=== PATIENT | female | born 1945 | race Hispanic/Latino ===

== ENCOUNTER → 2017-07-19 | Outpatient (CLI) | payer OTHER ==
[~2017-07-19] MED LIST: CEPH500C2 PO; CLON0.1T PO; FOLI1TAB85 PO; GLIP10TA9 PO; INSLAN SQ; LEVO50TA11 PO; METO-409 PO; NIFE60TA12 PO; SIMV10TA6 PO; SITA50TA PO
== END | disposition home or self-care (01) ==
LOC: RAH 09:05
PROVIDERS: ATTEND Family Medicine
DX: D24.1 Benign neoplasm of right breast (principal); Z98.890 Other specified postprocedural states
CPT/HCPCS: 77066

== ENCOUNTER 2018-05-15 08:57 | Inpatient (IN) | payer OTHER ==
[~2018-05-15] VITALS: Ht 157.5 cm; Wt 65.3 kg
[2018-05-15 09:28] LABS: BASOPHILS % (AUTO) 1.1 % (0.0-5.0); EOSINOPHILS % (AUTO) 1.1 % (0.0-8.0); HEMATOCRIT 29.4 % (36-48); LYMPHOCYTES % (AUTO) 26.2 % (21.0-51.0); MEAN CORPUSCULAR HGB CONC 33.1 g/dL (32.0-36.0); MEAN CORPUSCULAR VOLUME 93.8 fL (79-99); MONOCYTES % (AUTO) 8.2 % (3.0-13.0); NEUTROPHILS % (AUTO) 63.4 % (40.0-77.0); NUCLEATED RED BLOOD CELLS 0.2 % (0.0-0.19); PLATELET COUNT (AUTO) 192 K/uL (130-400); RED BLOOD CELL COUNT(AUTO) 3.14 MIL/uL (4.00-5.50); RED CELL DISTRIBUTION WIDTH 13.9 % (11.0-15.5); WHITE BLOOD COUNT (AUTO) 8.2 K/uL (4.8-10.8)
[2018-05-15 09:44] LABS: PARTIAL THROMBOPLASTIN TIME 29.5 SEC (26.3-35.5); PROTHROMBIN TIME 10.5 SEC (9.6-11.6)
[2018-05-15 10:15] LABS: POTASSIUM 8.6 mmol/L (3.5-5.1)
[2018-05-15 10:16] LABS: CREATININE 15.3 mg/dL (0.5-1.5)
[2018-05-15 10:19] LABS: ALBUMIN 3.5 g/dL (3.5-5.0); BILIRUBIN,TOTAL 0.5 mg/dL (0.2-1.0); TOTAL PROTEIN, SERUM 7.8 g/dL (6.0-8.3)
[2018-05-15] MEDS ORDERED: CALCIUM GLUCONATE 1 GM/10 ML VIAL IV ONE (10:20)
[2018-05-15] MEDS ORDERED: SODIUM CHLORIDE 0.9% 50 ML IV ONE (10:22)
[2018-05-15] MEDS ORDERED: DEXTROSE 50%-WATER 50 ML DISP.SYRIN IV ONE (10:31)
[2018-05-15] MEDS ORDERED: INSULIN HUMULIN R 100 UNIT/ML 3ML ONE (10:33)
[2018-05-15] MEDS ORDERED: SODIUM BICARB 50MEQ 50ML VIAL ONE (10:40)
[2018-05-15] MEDS ORDERED: LIDOCAINE HCL 2% 20ML ONE (10:41)
[2018-05-15] MEDS ORDERED: SODIUM POLYSTYRENE SULFONATE 15 GM/60 ML ML ONE (12:03)
[2018-05-15] MEDS ORDERED: SODIUM CHLORIDE 0.9% 1000ML 1,000 ML IV ONE (13:49)
[2018-05-15] MEDS ORDERED: SODIUM CHLORIDE 0.9% 1000ML 1,000 ML IV PRN (14:45)
[2018-05-15] MEDS ORDERED: HEPARIN SODIUM 5000UNIT/ML 1ML VIAL IJ PRN (14:45)
[2018-05-15] MEDS ORDERED: ALBUMIN (HUMAN) 25% 100 ML IV PRN (14:45)
[2018-05-15] MEDS ORDERED: 0.9% SODIUM CHLORIDE 250 ML IV BAG IV PRN (14:45)
[2018-05-15 17:57] LABS: CREATININE 6.2 mg/dL (0.5-1.5)
[2018-05-15 18:02] LABS: ALBUMIN 3.9 g/dL (3.5-5.0); BILIRUBIN,TOTAL 0.7 mg/dL (0.2-1.0)
[2018-05-15 21:05] VITALS: BP 148/65
[2018-05-15] MEDS ORDERED: ONDANSETRON HCL 4 MG/2 ML VIAL IVP PRN (22:00)
[2018-05-15] MEDS ORDERED: ACETAMINOPHEN 325 MG TAB PO PRN (22:00)
[2018-05-16] VITALS (11 sets, daily range): BP systolic 137–175; BP diastolic 58–78
[2018-05-16] MEDS ORDERED: CLONIDINE HCL 0.1 MG TABLET PO PRN (01:00)
[2018-05-16] MEDS ORDERED: CLON0.1T PO (01:13)
[2018-05-16] MEDS ORDERED: SUCR500T PO (01:13)
[2018-05-16] MEDS ORDERED: LEVO100T12 PO (01:13)
[2018-05-16] MEDS ORDERED: NIFE60TA71 PO (01:13)
[2018-05-16] MEDS ORDERED: TYL3 PO (01:13)
[2018-05-16] MEDS ORDERED: SITA25TA5 PO (01:13)
[2018-05-16] MEDS ORDERED: CELE-84 PO (01:13)
[2018-05-16] MEDS ORDERED: FOLI1TAB85 PO (01:13)
[2018-05-16] MEDS ORDERED: GLIP10TA9 PO (01:13)
[2018-05-16] MEDS ORDERED: ACETAMINOPHEN-CODEINE 300/30MG TAB ONE (01:20)
[2018-05-16 05:17] LABS: HEMATOCRIT 29.2 % (36-48); MEAN CORPUSCULAR HEMOGLOBIN 31.5 pg (27.0-33.0); MEAN CORPUSCULAR HGB CONC 33.9 g/dL (32.0-36.0); MEAN CORPUSCULAR VOLUME 92.7 fL (79-99); PLATELET COUNT (AUTO) 200 K/uL (130-400); RED BLOOD CELL COUNT(AUTO) 3.15 MIL/uL (4.00-5.50); RED CELL DISTRIBUTION WIDTH 13.7 % (11.0-15.5); WHITE BLOOD COUNT (AUTO) 6.3 K/uL (4.8-10.8)
[2018-05-16 05:20] LABS: MAGNESIUM 2.1 mg/dL (1.80-2.40); PHOSPHORUS 8.1 mg/dL (2.5-4.9); POTASSIUM 5.1 mmol/L (3.5-5.1)
[2018-05-16 05:22] LABS: CREATININE 9.2 mg/dL (0.5-1.5)
[2018-05-16] MEDS: INSULIN R PO SS1 SQ SCH ×2 (06:29→21:00)
[2018-05-16] MEDS: CELECOXIB 200 MG CAP PO SCH (08:00)
[2018-05-16] MEDS ORDERED: NON-FORMULARY MEDICATION 1 EACH (Vit B Cmplx 3/FA/Vit C/Biotin (Rena-Vite Rx Tablet) 1 EAC PO SCH (09:00)
[2018-05-16] MEDS ORDERED: SITAGLIPTIN PHOSPHATE 25 MG PO SCH (09:00)
[2018-05-16] MEDS ORDERED: SITAGLIPTIN PHOSPHATE 50 MG PO SCH (09:00)
[2018-05-16] MEDS: VITAMIN B COMPLEX 1 CAPSULE PO SCH (09:00)
[2018-05-16] MEDS: ENOXAPARIN SODIUM 30 MG/0.3 ML SQ SCH (09:00)
[2018-05-16] MEDS: VELPHORO PO SCH ×2 (09:00→21:00)
[2018-05-16] MEDS ORDERED: LIDOCAINE HCL 1% MDV 50ML VIAL ONE (15:20)
[2018-05-16] MEDS ORDERED: IODIXANOL 320 MG/ML 100 ML VIAL ONE ×2 (15:20→17:00)
[2018-05-16] MEDS ORDERED: HEPARIN SODIUM 1000UNIT/ML 10ML VIAL ONE (16:07)
[2018-05-16] MEDS ORDERED: HYDRALAZINE HCL 20 MG/ML VIAL ONE (17:34)
[2018-05-16] MEDS ORDERED: ACETAMINOPHEN-CODEINE 300/30MG TAB PO ONE (18:30)
[2018-05-16] MEDS ORDERED: PHARMACY COMMUNICATION MISC SCH (18:45)
[2018-05-16] MEDS ORDERED: MORPHINE SULFATE 2 MG/ML 1ML SYG ONE (20:56)
[2018-05-16] MEDS: INSULIN GLARGINE 100 UNITS/ML 10 ML VIAL SQ SCH (21:00)
[2018-05-16] MEDS ORDERED: MORPHINE SULFATE 2 MG/ML 1ML SYG IV PRN (21:00)
[2018-05-16] MEDS: ACETAMINOPHEN-CODEINE 300/30MG TAB PO SCH (21:00)
[2018-05-16] MEDS ORDERED: ONDANSETRON HCL 4 MG/2 ML VIAL IVP PRN (21:00)
[2018-05-17] VITALS (7 sets, daily range): BP systolic 153–180; BP diastolic 61–92
[2018-05-17] MEDS: CLONIDINE HCL 0.1 MG TABLET PO PRN ×2 (00:54→11:08)
[2018-05-17] MEDS: NIFEDIPINE ER 30 MG TAB PO SCH ×2 (07:30→11:07)
[2018-05-17] MEDS: INSULIN R PO SS1 SQ SCH ×4 (07:30→21:00)
[2018-05-17] MEDS: LEVOTHYROXINE 100 MCG TABLET PO SCH ×2 (07:30→11:13)
[2018-05-17] MEDS: ENOXAPARIN SODIUM 30 MG/0.3 ML SQ SCH (09:00)
[2018-05-17] MEDS: VELPHORO PO SCH ×2 (09:00→21:00)
[2018-05-17] MEDS: CELECOXIB 200 MG CAP PO SCH ×2 (11:07→16:07)
[2018-05-17] MEDS: ACETAMINOPHEN-CODEINE 300/30MG TAB PO SCH ×3 (11:07→21:00)
[2018-05-17] MEDS: PANTOPRAZOLE SODIUM 40 MG TABLET.DR PO SCH ×2 (11:09→16:24)
[2018-05-17] MEDS: VITAMIN B COMPLEX 1 CAPSULE PO SCH ×2 (11:09→16:08)
[2018-05-17] MEDS: SIMVASTATIN 10 MG TABLET PO SCH ×2 (11:11→16:26)
[2018-05-17] MEDS: GLIPIZIDE 5 MG TABLET PO SCH ×2 (11:17→16:23)
[2018-05-18] MEDS: INSULIN GLARGINE 100 UNITS/ML 10 ML VIAL SQ SCH (00:06)
[2018-05-18 03:27] VITALS: BP 147/61
[2018-05-18] MEDS: INSULIN R PO SS1 SQ SCH ×2 (06:05→11:30)
[2018-05-18] MEDS: LEVOTHYROXINE 100 MCG TABLET PO SCH (07:32)
[2018-05-18] MEDS: NIFEDIPINE ER 30 MG TAB PO SCH (07:32)
[2018-05-18] MEDS: VITAMIN B COMPLEX 1 CAPSULE PO SCH (08:17)
[2018-05-18] MEDS: SIMVASTATIN 10 MG TABLET PO SCH (08:17)
[2018-05-18] MEDS: GLIPIZIDE 5 MG TABLET PO SCH (08:17)
[2018-05-18] MEDS: CELECOXIB 200 MG CAP PO SCH (08:17)
[2018-05-18] MEDS: PANTOPRAZOLE SODIUM 40 MG TABLET.DR PO SCH (08:17)
[2018-05-18] MEDS: ACETAMINOPHEN-CODEINE 300/30MG TAB PO SCH (08:19)
[2018-05-18 08:20] VITALS: BP 147/59
[2018-05-18] MEDS: ENOXAPARIN SODIUM 30 MG/0.3 ML SQ SCH (08:20)
[2018-05-18] MEDS: VELPHORO PO SCH (08:23)
[2018-05-18 11:54] VITALS: BP 153/67
== END 2018-05-18 13:37 | disposition home or self-care (01) | DRG 252 ==
LOC: EDH 08:57 → EDHIP 11:00 → 3AH 21:13
PROVIDERS: ADMIT Internal Medicine Critical Care Medicine; ATTEND Internal Medicine Critical Care Medicine
PROC: 5A1D70Z Performance of Urinary Filtration, Intermittent, Less than 6 Hours Per Day (ICD-10-PCS; 2018-05-15)
PROC: 0JH63XZ Insertion of Tunneled Vascular Access Device into Chest Subcutaneous Tissue and Fascia, Percutaneous Approach (ICD-10-PCS; principal; 2018-05-16)
PROC: 02H633Z Insertion of Infusion Device into Right Atrium, Percutaneous Approach (ICD-10-PCS; 2018-05-16)
PROC: 03773ZZ Dilation of Right Brachial Artery, Percutaneous Approach (ICD-10-PCS; 2018-05-16)
PROC: 05773ZZ Dilation of Right Axillary Vein, Percutaneous Approach (ICD-10-PCS; 2018-05-16)
PROC: 027V3ZZ Dilation of Superior Vena Cava, Percutaneous Approach (ICD-10-PCS; 2018-05-16)
PROC: 5A1D70Z Performance of Urinary Filtration, Intermittent, Less than 6 Hours Per Day (ICD-10-PCS; 2018-05-17)
PROC: 05HM33Z Insertion of Infusion Device into Right Internal Jugular Vein, Percutaneous Approach (ICD-10-PCS; 2018-05-17)
DX: T82.510A Breakdown (mechanical) of surgically created arteriovenous fistula, initial encounter (principal); N18.6 End stage renal disease; E87.2 Acidosis; I12.0 Hypertensive chronic kidney disease with stage 5 chronic kidney disease or end stage renal disease; E87.5 Hyperkalemia; E11.22 Type 2 diabetes mellitus with diabetic chronic kidney disease; E66.01 Morbid (severe) obesity due to excess calories; E11.21 Type 2 diabetes mellitus with diabetic nephropathy; E78.5 Hyperlipidemia, unspecified; E87.70 Fluid overload, unspecified; Y83.2 Surgical operation with anastomosis, bypass or graft as the cause of abnormal reaction of the patient, or of later complication, without mention of misadventure at the time of the procedure; Y84.1 Kidney dialysis as the cause of abnormal reaction of the patient, or of later complication, without mention of misadventure at the time of the procedure; M19.90 Unspecified osteoarthritis, unspecified site; Z68.26 Body mass index [BMI] 26.0-26.9, adult; Z99.2 Dependence on renal dialysis; Z79.4 Long term (current) use of insulin; Y92.89 Other specified places as the place of occurrence of the external cause
CPT/HCPCS: 36415; 36556; 36581; 36905; 36907; 71045; 77001; 80048; 80053; 82948; 83735; 84100; 84484; 85025; 85027; 85610; 85730; 90935; 93005; 99291; C1725; C1750; C1752; C1757; C1769; C1893; C1894; J0360; J0610; J1644; J1650; J1815; J2405; J3490; J7030; J7070; Q9967

== ENCOUNTER → 2018-09-19 | Outpatient (CLI) | payer OTHER ==
[~2018-09-19] MED LIST changes: +CELE-84 PO; -CEPH500C2 PO; +LEVO100T12 PO; -LEVO50TA11 PO; -METO-409 PO; -NIFE60TA12 PO; +NIFE60TA71 PO; +SITA25TA5 PO; +SUCR500T PO; +TYL3 PO
== END | disposition home or self-care (01) ==
LOC: SHCH 15:53
PROVIDERS: ATTEND Internal Medicine Cardiovascular Disease
DX: I08.0 Rheumatic disorders of both mitral and aortic valves (principal); E78.5 Hyperlipidemia, unspecified
CPT/HCPCS: 93306

== ENCOUNTER → 2018-09-26 | Outpatient (CLI) | payer OTHER ==
[~2018-09-26] VITALS: Ht 157.5 cm; Wt 68.0 kg
[~2018-09-26] MED LIST changes: +REGADENOSON 0.4 MG/5 ML PF SYG IVP SCH
== END | disposition home or self-care (01) ==
LOC: SHCH 08:22
PROVIDERS: ATTEND Internal Medicine Cardiovascular Disease
DX: Z01.818 Encounter for other preprocedural examination (principal); R01.1 Cardiac murmur, unspecified; E78.5 Hyperlipidemia, unspecified
CPT/HCPCS: 78452; 93017; 96374; A9500 ×2; J2785

== ENCOUNTER → 2019-11-25 | Outpatient (CLI) | payer OTHER ==
[~2019-11-25] MED LIST changes: +CALC667C10 PO; +CLON-353 PO; +CLON0.1T2 PO; +HYDR-4153 PO; +HYDR25 PO; +LEVO112T7 PO; +LEVO500T2 PO; +METO50 PO; +NIFE-39 PO; -NIFE60TA71 PO; +PANT40TA54 PO; -REGADENOSON 0.4 MG/5 ML PF SYG IVP SCH; -SIMV10TA6 PO; +SIMV10TA97 PO
== END | disposition home or self-care (01) ==
LOC: RAH 14:04
PROVIDERS: ATTEND Family Medicine
DX: Z12.31 Encounter for screening mammogram for malignant neoplasm of breast (principal)
CPT/HCPCS: 77067

== ENCOUNTER 2019-12-06 12:57 | Inpatient (IN) | payer OTHER ==
[~2019-12-06] VITALS: Ht 165.1 cm; Wt 58.5 kg
[2019-12-06] MEDS ORDERED: ACETAMINOPHEN EXTRA STRENGTH 500 MG TABLET ONE (14:53)
[2019-12-06] MEDS ORDERED: ONDANSETRON HCL 4 MG/2 ML VIAL ONE (14:53)
[2019-12-06] MEDS ORDERED: GUAIFENESIN-DM 200/20 MG 10 ML PO PRN (15:30)
[2019-12-06] MEDS ORDERED: ONDANSETRON HCL 4 MG/2 ML VIAL IV PRN (15:30)
[2019-12-06] MEDS ORDERED: LACTULOSE 20 GM/30 ML UDCUP PO PRN (15:30)
[2019-12-06] MEDS ORDERED: NITROGLYCERIN 0.4 MG SL TAB SL PRN (15:30)
[2019-12-06] MEDS ORDERED: ACETAMINOPHEN-CODEINE 300/30MG TAB PO PRN (15:30)
[2019-12-06] MEDS ORDERED: ZOSYN 3.375GM+NS 50ML 50 ML IV ONE (17:56)
[2019-12-06] MEDS: HEPARIN SODIUM 5000UNIT/ML 1ML VIAL SQ SCH (21:00)
[2019-12-06] MEDS: ZOSYN 3.375GM+NS 50ML 50 ML IV SCH (21:00)
[2019-12-06] MEDS ORDERED: FAMOTIDINE 20MG TAB 20 MG TAB PO SCH (21:00)
[2019-12-07 03:00] VITALS: BP 175/55; PULSE 110; RESP 18; TEMP 99
[2019-12-07] MEDS: ACETAMINOPHEN 325 MG TAB PO PRN ×2 (03:59→21:30)
[2019-12-07] MEDS: INSULIN HUMULIN R 100 UNIT/ML 3ML SQ SCH ×4 (07:30→21:00)
[2019-12-07 08:00] VITALS: BP 149/50; PULSE 86; RESP 18; TEMP 98.9
[2019-12-07] MEDS: FOLIC ACID/VITAMIN B COMP W-C 1 CAP TAB PO SCH (08:23)
[2019-12-07] MEDS: NIFEDIPINE ER 30 MG TAB PO SCH (08:23)
[2019-12-07] MEDS: PANTOPRAZOLE SODIUM 40 MG TABLET.DR PO SCH (08:24)
[2019-12-07] MEDS: ZOSYN 3.375GM+NS 50ML 50 ML IV SCH ×2 (08:24→21:19)
[2019-12-07] MEDS: LEVOTHYROXINE 112 MCG TABLET PO SCH (08:24)
[2019-12-07] MEDS: CELECOXIB 200 MG CAP PO SCH (08:24)
[2019-12-07] MEDS: HYDRALAZINE HCL 25 MG TABLET PO SCH ×3 (08:24→21:20)
[2019-12-07] MEDS: HEPARIN SODIUM 5000UNIT/ML 1ML VIAL SQ SCH ×2 (08:26→21:39)
[2019-12-07] MEDS ORDERED: DEXAMETHASONE 4 MG TAB PO SCH (09:00)
[2019-12-07] MEDS ORDERED: HEPARIN SODIUM 5000UNIT/ML 1ML VIAL SQ SCH (11:15)
[2019-12-07 12:00] VITALS: BP 184/80; PULSE 94; RESP 18; TEMP 97.9
[2019-12-07] MEDS: CLONIDINE HCL 0.1 MG TABLET PO PRN (12:51)
[2019-12-07] MEDS: SODIUM CHLORIDE 0.9% 1000ML 1,000 ML IV SCH (14:29)
[2019-12-07 16:00] VITALS: BP 169/81; PULSE 96; RESP 18; TEMP 98
--- NOTE | 2019-12-07 17:57 | NUR ---
D/C PLAN Pt gave CM verbal consent to speak to daughter named Slime regarding d/c planning. Daughter states pt lives with spouse and son. Denies having any provider services or home health. States pt has wk for ambulation. Plan to home. No needs verbalized or identified. CM to f/u. Addendum: 12/07/19 at 1800 by JOSE ELIAS KENT CM Amended: Links added.
[2019-12-07 20:12] VITALS: BP 182/53; PULSE 98; RESP 18; TEMP 98.2
[2019-12-07] MEDS: INSULIN GLARGINE 100 UNITS/ML 10 ML VIAL SQ SCH (21:00)
[2019-12-07] MEDS: SIMVASTATIN 10 MG TABLET PO SCH (21:20)
[2019-12-08] VITALS (7 sets, daily range): BP systolic 138–189; BP diastolic 53–80; PULSE 92–106; RESP 16–22; TEMP 97.8–102.6
[2019-12-08] MEDS: CLONIDINE HCL 0.1 MG TABLET PO PRN ×2 (01:00→16:44)
[2019-12-08] MEDS: DiphenhydrAMINE HCL 50 MG/ML VIAL IV PRN (01:00)
[2019-12-08] MEDS: NIFEDIPINE ER 30 MG TAB PO SCH (06:18)
[2019-12-08] MEDS: LEVOTHYROXINE 112 MCG TABLET PO SCH (06:18)
[2019-12-08] MEDS: PANTOPRAZOLE SODIUM 40 MG TABLET.DR PO SCH (06:19)
[2019-12-08] MEDS: INSULIN HUMULIN R 100 UNIT/ML 3ML SQ SCH ×4 (06:19→20:35)
[2019-12-08] MEDS: FOLIC ACID/VITAMIN B COMP W-C 1 CAP TAB PO SCH (08:32)
[2019-12-08] MEDS: HYDRALAZINE HCL 25 MG TABLET PO SCH ×4 (08:32→20:22)
[2019-12-08] MEDS: CELECOXIB 200 MG CAP PO SCH (08:32)
[2019-12-08] MEDS: ZOSYN 3.375GM+NS 50ML 50 ML IV SCH ×2 (08:33→20:22)
[2019-12-08] MEDS: ACETAMINOPHEN 325 MG TAB PO PRN ×2 (08:33→23:22)
[2019-12-08] MEDS: HEPARIN SODIUM 5000UNIT/ML 1ML VIAL SQ SCH ×2 (08:45→20:22)
[2019-12-08] MEDS: SODIUM CHLORIDE 0.9% 1000ML 1,000 ML IV SCH (10:15)
[2019-12-08] MEDS: SIMVASTATIN 10 MG TABLET PO SCH (20:21)
[2019-12-08] MEDS: INSULIN GLARGINE 100 UNITS/ML 10 ML VIAL SQ SCH (20:35)
[2019-12-09] MEDS: CLONIDINE HCL 0.1 MG TABLET PO PRN (01:13)
[2019-12-09 04:00] VITALS: BP 182/79; PULSE 97; RESP 20; TEMP 98.1
[2019-12-09] MEDS: SODIUM CHLORIDE 0.9% 1000ML 1,000 ML IV SCH ×2 (06:15→22:20)
[2019-12-09 07:30] VITALS: BP 200/90; PULSE 95; RESP 18; TEMP 98.3
[2019-12-09] MEDS: INSULIN HUMULIN R 100 UNIT/ML 3ML SQ SCH ×4 (07:30→21:00)
[2019-12-09] MEDS: HYDRALAZINE HCL 25 MG TABLET PO SCH ×3 (08:27→21:57)
[2019-12-09] MEDS: FOLIC ACID/VITAMIN B COMP W-C 1 CAP TAB PO SCH (08:27)
[2019-12-09] MEDS: ZOSYN 3.375GM+NS 50ML 50 ML IV SCH ×2 (08:27→21:58)
[2019-12-09] MEDS: CELECOXIB 200 MG CAP PO SCH (08:27)
[2019-12-09] MEDS: NIFEDIPINE ER 30 MG TAB PO SCH (08:27)
[2019-12-09] MEDS: PANTOPRAZOLE SODIUM 40 MG TABLET.DR PO SCH (08:27)
[2019-12-09] MEDS: LEVOTHYROXINE 112 MCG TABLET PO SCH (08:27)
[2019-12-09] MEDS: HEPARIN SODIUM 5000UNIT/ML 1ML VIAL SQ SCH ×2 (08:28→22:09)
[2019-12-09] MEDS ORDERED: HYDRALAZINE HCL 20 MG/ML VIAL IM PRN (10:00)
[2019-12-09] MEDS ORDERED: METOPROLOL TARTRATE 1 MG/ML 5ML VIAL IV SCH (10:00)
--- NOTE | 2019-12-09 10:30 | NUR ---
PATIENT'S BP 200/90. ODESSA AWARE. NEW ORDERS RECEIVED FOR METOPROLOL 10 MG ONCE AND HYDRALIZINE 10 MG PRN Q6HR. WILL CONTINUE TO MONITOR CLOSELY.
[2019-12-09 11:00] VITALS: BP 208/80; PULSE 94; RESP 16; TEMP 97.9
[2019-12-09] MEDS ORDERED: LEVOFLOXACIN 500 MG TABLET PO SCH (11:00)
--- NOTE | 2019-12-09 15:19 | NUR ---
RD NOTIFICATION Pt admitted with PNA, ESRD on HD, Abdominal Pain, nausea, vomiting. Pt with Clear Liquid diet order x2 days. Poor PO intake. s/p hemodialysis x2 as per EMR. Recommend advance diet order as tolerated to Renal Dialysis diet order Recommend 60mL ProMod QD Nutrition education previously provided RD to continue to monitor. Please notify as additional nutrition concerns arise. Thank you. Addendum: 12/09/19 at [address] Amended: Links added.
--- NOTE | 2019-12-09 15:25 | NUR ---
NUTRITION EDUCATION RENAL DIALYSIS NUTRITION EDUCATION PREVIOUSLY PROVIDED. JULIO TO CONTINUE TO MONITOR. Addendum: 12/09/19 at [address] Amended: Links added.
[2019-12-09 16:00] VITALS: BP 176/76; PULSE 93; RESP 18; TEMP 98.7
[2019-12-09] MEDS: ACETAMINOPHEN 325 MG TAB PO PRN ×2 (16:25→22:21)
[2019-12-09 21:56] VITALS: BP 148/50; PULSE 95; RESP 20; TEMP 98.1
[2019-12-09] MEDS: SIMVASTATIN 10 MG TABLET PO SCH (21:57)
[2019-12-09] MEDS: INSULIN GLARGINE 100 UNITS/ML 10 ML VIAL SQ SCH (22:12)
[2019-12-09] MEDS: DiphenhydrAMINE HCL 50 MG/ML VIAL IV PRN (22:21)
[2019-12-10 00:22] VITALS: BP 155/50; PULSE 76; RESP 19; TEMP 98.2
[2019-12-10 04:36] VITALS: BP 210/70; PULSE 95; RESP 20; TEMP 98.1
[2019-12-10] MEDS: LEVOTHYROXINE 112 MCG TABLET PO SCH (05:37)
[2019-12-10] MEDS: NIFEDIPINE ER 30 MG TAB PO SCH (05:37)
[2019-12-10] MEDS: PANTOPRAZOLE SODIUM 40 MG TABLET.DR PO SCH (05:37)
[2019-12-10] MEDS: HYDRALAZINE HCL 25 MG TABLET PO SCH ×2 (05:38→21:59)
[2019-12-10] MEDS: INSULIN HUMULIN R 100 UNIT/ML 3ML SQ SCH ×4 (05:39→21:00)
--- NOTE | 2019-12-10 07:10 | NUR ---
0658: Patient's b/p still elevated at 200/77, have administered Hydralazine 10 mg IM, hydralazine 25 mg po, Procardia [address] Boston via answering service, pending call. 0700: Clonodine 0.1 mg po, b/p down to 148/107, patient remains asymptomatic. 0710: Incoming nurse given report on patient's elevated b/p, and pending call from Dr. Stephens's group.
[2019-12-10] MEDS ORDERED: LABETALOL HCL 5 MG/ML 20ML VIAL IV PRN (07:30)
[2019-12-10 08:00] VITALS: BP 168/105; PULSE 97; RESP 18; TEMP 98.8
[2019-12-10] MEDS: HEPARIN SODIUM 5000UNIT/ML 1ML VIAL SQ SCH ×2 (09:00→22:45)
[2019-12-10] MEDS ORDERED: HYDRALAZINE HCL 20 MG/ML VIAL IV PRN (10:00)
[2019-12-10] MEDS: ZOSYN 3.375GM+NS 50ML 50 ML IV SCH ×2 (10:14→21:59)
[2019-12-10] MEDS: FOLIC ACID/VITAMIN B COMP W-C 1 CAP TAB PO SCH (10:14)
[2019-12-10] MEDS: CELECOXIB 200 MG CAP PO SCH (10:14)
[2019-12-10 12:00] VITALS: BP 193/74; PULSE 88; RESP 19; TEMP 97.8
[2019-12-10] MEDS ORDERED: HYDRALAZINE HCL 25 MG TABLET PO SCH (14:00)
[2019-12-10 16:00] VITALS: BP 171/62; PULSE 89; RESP 18; TEMP 97.9
--- NOTE | 2019-12-10 19:50 | NUR ---
1946: Patient's fingerstick result at 59mg/dl, patient asymptomatic. Patient requesting other food other then apple juice. I paged Mirta MARES via answering service called within a few minutes. Informed him of patient's low blood sugar since 1700. Informed him patient has not been having any more diarrhea. Orders received to administer D50, one amp, and increase her diet to a soft bland, carb control, dialysis diet. Patient made aware of new order, verbalized understanding.
[2019-12-10] MEDS ORDERED: DEXTROSE 50%-WATER 50 ML DISP.SYRIN IV ONE (19:56)
[2019-12-10] MEDS ORDERED: DEXTROSE 50%-WATER 50 ML DISP.SYRIN IV SCH (20:00)
[2019-12-10 20:36] VITALS: BP 183/75; PULSE 97; RESP 20; TEMP 98.1
[2019-12-10] MEDS: INSULIN GLARGINE 100 UNITS/ML 10 ML VIAL SQ SCH (21:00)
[2019-12-10] MEDS: SIMVASTATIN 10 MG TABLET PO SCH (21:59)
[2019-12-10] MEDS: SODIUM CHLORIDE 0.9% 1000ML 1,000 ML IV SCH (22:15)
[2019-12-11 00:05] VITALS: BP 168/63; PULSE 90; RESP 20; TEMP 98.9
[2019-12-11 04:27] VITALS: BP 186/78; PULSE 84; RESP 20; TEMP 98.1
[2019-12-11] MEDS: PANTOPRAZOLE SODIUM 40 MG TABLET.DR PO SCH (05:51)
[2019-12-11] MEDS: NIFEDIPINE ER 30 MG TAB PO SCH (05:51)
[2019-12-11] MEDS: HYDRALAZINE HCL 25 MG TABLET PO SCH ×2 (05:51→13:16)
[2019-12-11] MEDS: LEVOTHYROXINE 112 MCG TABLET PO SCH (05:51)
[2019-12-11] MEDS: INSULIN HUMULIN R 100 UNIT/ML 3ML SQ SCH ×2 (05:55→11:30)
[2019-12-11 08:00] VITALS: BP 192/75; PULSE 98; RESP 18; TEMP 97.9
[2019-12-11] MEDS: ZOSYN 3.375GM+NS 50ML 50 ML IV SCH (11:14)
[2019-12-11] MEDS: FOLIC ACID/VITAMIN B COMP W-C 1 CAP TAB PO SCH (11:14)
[2019-12-11] MEDS: CELECOXIB 200 MG CAP PO SCH (11:15)
[2019-12-11] MEDS: HEPARIN SODIUM 5000UNIT/ML 1ML VIAL SQ SCH (11:25)
[2019-12-11 12:00] VITALS: BP 180/75; PULSE 96; RESP 18; TEMP 98.1
[2019-12-11] MEDS ORDERED: CLONIDINE HCL 0.2 MG TABLET PO SCH (12:15)
[2019-12-11 12:54] VITALS: BP 180/75; PULSE 96
--- NOTE | 2019-12-11 16:35 | NUR ---
[id number] patient signed IM Letter, I faxed IM Letter to [phone] and placed in chart under consent tab.
--- NOTE | 2019-12-11 18:10 | NUR ---
PER MD ORDERS D/C PT HOME. IV REMOVED, TIP INTACT. TELE MONITOR ALSO REMOVED. DISCHARGE INSTRUCTIONS GIVEN TO PT ALONG WITH FOLLOW UP APPT. INSTRUCTED PT TO TAKE MEDS ORDERED BY MD AND TO CONTINUE MONITORING BP AND BLOOD SUGARS. PT STATED UNDERSTANDING.
[2019-12-11] MEDS ORDERED: LEVOFLOXACIN 500 MG TABLET PO SCH (21:00)
== END 2019-12-11 18:41 | disposition home or self-care (01) | DRG 871 ==
LOC: EDH 12:57 → OBSVTOIN 15:28 → EDHIP 15:28 → 3DH 12-07 02:30 → 3AH 12-09 12:22
PROVIDERS: ADMIT Internal Medicine; ATTEND Internal Medicine
PROC: 5A1D70Z Performance of Urinary Filtration, Intermittent, Less than 6 Hours Per Day (ICD-10-PCS; principal; 2019-12-08)
PROC: 5A1D70Z Performance of Urinary Filtration, Intermittent, Less than 6 Hours Per Day (ICD-10-PCS; 2019-12-10)
DX: A02.1 Salmonella sepsis (principal); N18.6 End stage renal disease; E87.1 Hypo-osmolality and hyponatremia; N39.0 Urinary tract infection, site not specified; I12.0 Hypertensive chronic kidney disease with stage 5 chronic kidney disease or end stage renal disease; A02.0 Salmonella enteritis; E03.9 Hypothyroidism, unspecified; E11.22 Type 2 diabetes mellitus with diabetic chronic kidney disease; E78.5 Hyperlipidemia, unspecified; Z20.828 Contact with and (suspected) exposure to other viral communicable diseases; D63.1 Anemia in chronic kidney disease; Z99.2 Dependence on renal dialysis; Z79.4 Long term (current) use of insulin; Z79.899 Other long term (current) drug therapy

== ENCOUNTER → 2020-04-08 | Outpatient (CLI) | payer OTHER ==
[~2020-04-08] MED LIST changes: -CLON0.1T PO; -CLON0.1T2 PO; -HYDR-4153 PO; -LEVO100T12 PO; -METO50 PO; -SITA50TA PO; -SUCR500T PO; -TYL3 PO
== END | disposition home or self-care (01) ==
LOC: ENDO 09:34 → DAH 10:00 → EDSTATUS 04-15 09:20
PROVIDERS: ATTEND Internal Medicine Gastroenterology
DX: R19.5 Other fecal abnormalities (principal); Z20.828 Contact with and (suspected) exposure to other viral communicable diseases; R12 Heartburn
CPT/HCPCS: 36415; C9803; U0003

== ENCOUNTER 2020-05-04 07:37 | Day surgery (SDC) | payer OTHER ==
[2020-05-04] VITALS (7 sets, daily range): BP systolic 137–165; BP diastolic 44–56
[~2020-05-04] VITALS: Ht 157.5 cm; Wt 59.9 kg
[2020-05-04] MEDS ORDERED: SUCR500T PO (09:42)
[2020-05-04] MEDS ORDERED: METO50TA18 PO (09:42)
[2020-05-04] MEDS ORDERED: LISI40TA4 PO (09:42)
[2020-05-04] MEDS ORDERED: HYDR-4153 PO (09:42)
[2020-05-04 10:03] LABS: CREATININE 5.2 mg/dL (0.5-1.5); POTASSIUM 4.2 mmol/L (3.5-5.1)
[2020-05-04] MEDS ORDERED: PROPOFOL 10 MG/ML 20ML VIAL IV ONE (10:35)
[2020-05-04] MEDS ORDERED: MIDAZOLAM HCL 1 MG/ML 2ML VIAL ONE (10:35)
== END 2020-05-04 12:03 | disposition home or self-care (01) ==
LOC: DAH 07:37 → ENDO 07:37
PROVIDERS: ATTEND Internal Medicine Gastroenterology
DX: R19.5 Other fecal abnormalities (principal); K63.5 Polyp of colon; K29.70 Gastritis, unspecified, without bleeding; K31.7 Polyp of stomach and duodenum; E78.5 Hyperlipidemia, unspecified; I12.0 Hypertensive chronic kidney disease with stage 5 chronic kidney disease or end stage renal disease; E11.22 Type 2 diabetes mellitus with diabetic chronic kidney disease; N18.6 End stage renal disease; E03.9 Hypothyroidism, unspecified; M81.0 Age-related osteoporosis without current pathological fracture; M19.90 Unspecified osteoarthritis, unspecified site; Z90.49 Acquired absence of other specified parts of digestive tract; Z98.51 Tubal ligation status; Z79.4 Long term (current) use of insulin; Z79.899 Other long term (current) drug therapy; Z20.828 Contact with and (suspected) exposure to other viral communicable diseases
CPT/HCPCS: 36415 ×2; 43239; 43251; 45380; 45385; 80048; 82948 ×2; 93005; A4215; A4221; A4222; A4223; A4606; A4620; A4657; A4663; C9803; J2250; J2704; U0003

== ENCOUNTER 2020-05-05 02:59 | Inpatient (IN) | payer OTHER ==
[~2020-05-05] VITALS: Ht 157.5 cm; Wt 58.2 kg
[2020-05-05] VITALS (8 sets, daily range): BP systolic 102–160; BP diastolic 34–53
[~2020-05-05 02:59] MED LIST changes: -CALC667C10 PO; -CELE-84 PO; +HYDR-4153 PO; -HYDR25 PO; -LEVO500T2 PO; +LISI40TA4 PO; +METO50TA18 PO; -PANT40TA54 PO; +SUCR500T PO
[2020-05-05] MEDS ORDERED: ONDANSETRON HCL 4 MG/2 ML VIAL ONE (03:30)
[2020-05-05] MEDS ORDERED: PANTOPRAZOLE 40 MG/VIAL ONE (03:31)
[2020-05-05] MEDS ORDERED: FAMOTIDINE/PF 20 MG/2 ML VIAL IV ONE (03:31)
[2020-05-05] MEDS ORDERED: SODIUM CHLORIDE 0.9% 50 ML IV ONE (03:32)
[2020-05-05] MEDS ORDERED: SODIUM CHLORIDE 0.9% 500ML 500 ML IV ONE ×2 (03:32→16:42)
[2020-05-05 03:54] LABS: BASOPHILS % (AUTO) 0.2 % (0.0-5.0); EOSINOPHILS % (AUTO) 0.4 % (0.0-8.0); HEMATOCRIT 25.6 % (36-48); LYMPHOCYTES % (AUTO) 8.4 % (21.0-51.0); MEAN CORPUSCULAR HEMOGLOBIN 31.5 pg (27.0-33.0); MEAN CORPUSCULAR HGB CONC 33.6 g/dL (32.0-36.0); MEAN CORPUSCULAR VOLUME 93.8 fL (79-99); MONOCYTES % (AUTO) 7.5 % (3.0-13.0); NEUTROPHILS % (AUTO) 83.1 % (40.0-77.0); PLATELET COUNT (AUTO) 165 K/uL (130-400); RED BLOOD CELL COUNT(AUTO) 2.73 MIL/uL (4.00-5.50); RED CELL DISTRIBUTION WIDTH 13.3 % (11.0-15.5); WHITE BLOOD COUNT (AUTO) 11.2 K/uL (4.8-10.8)
[2020-05-05 04:08] LABS: INR 1.07 (0.85-1.15); PARTIAL THROMBOPLASTIN TIME 28.9 SEC (26.3-35.5); PROTHROMBIN TIME 11.5 SEC (9.6-11.6)
[2020-05-05 04:10] LABS: CREATININE 6.4 mg/dL (0.5-1.5); POTASSIUM 4.5 mmol/L (3.5-5.1)
[2020-05-05 04:20] LABS: ALBUMIN 2.9 g/dL (3.5-5.0); BILIRUBIN,TOTAL 0.5 mg/dL (0.2-1.0); TOTAL PROTEIN, SERUM 6.2 g/dL (6.0-8.3)
[2020-05-05] MEDS ORDERED: SODIUM CHLORIDE 0.9% 1000ML 1,000 ML IV SCH (07:00)
[2020-05-05 10:20] LABS: HEMATOCRIT 19.3 % (36-48)
[2020-05-05] MEDS ORDERED: GLUCAGON 1MG KIT 1 MG ML IM PRN (11:30)
[2020-05-05] MEDS ORDERED: DEXTROSE 50%-WATER 50 ML DISP.SYRIN IV PRN (11:30)
[2020-05-05 13:20] LABS: HEMATOCRIT 16.1 % (36-48)
[2020-05-05] MEDS: PANTOPRAZOLE SODIUM 80 MG in NS 100ML IVP SCH (15:39)
--- NOTE | 2020-05-05 16:00 | NUR ---
CM NOTE/IA UNABLE TO MET WITH PATIENT AT BEDSIDE. BUD SAHU DID IA. PER PATIENT, LIVES WITH SPOUSE, IS INDEPENDENT WITH ADLS, NO USE OF PROVIDERS OR HOME HEALTH, NO DME IN USE AND FEELS SAFE TO RETURN HOME ONCE DISCHARGED. Addendum: 05/05/20 at 1601 by RONEY LAZO RN CM Amended: Links added.
[2020-05-05] MEDS ORDERED: METOPROLOL TARTRATE 1 MG/ML 5ML VIAL IV PRN (18:15)
[2020-05-05] MEDS: ONDANSETRON HCL 4 MG/2 ML VIAL IVP PRN (19:46)
[2020-05-05 20:45] LABS: HEMATOCRIT 27.7 % (36-48)
[2020-05-05] MEDS: INSULIN HUMULIN R 100 UNIT/ML 3ML SQ SCH (21:00)
[2020-05-06] VITALS (31 sets, daily range): BP systolic 141–201; BP diastolic 31–97
[2020-05-06 06:21] LABS: HEMATOCRIT 24.5 % (36-48); MEAN CORPUSCULAR HEMOGLOBIN 30.1 pg (27.0-33.0); MEAN CORPUSCULAR HGB CONC 34.3 g/dL (32.0-36.0); MEAN CORPUSCULAR VOLUME 87.8 fL (79-99); RED BLOOD CELL COUNT(AUTO) 2.79 MIL/uL (4.00-5.50); RED CELL DISTRIBUTION WIDTH 15.2 % (11.0-15.5)
[2020-05-06 06:36] LABS: CREATININE 4.7 mg/dL (0.5-1.5); POTASSIUM 4.4 mmol/L (3.5-5.1)
[2020-05-06] MEDS: INSULIN HUMULIN R 100 UNIT/ML 3ML SQ SCH ×4 (07:30→21:00)
[2020-05-06] MEDS ORDERED: GLYCOPYRROLATE 1 MG/5 ML SYRINGE ONE (11:45)
[2020-05-06] MEDS ORDERED: PROPOFOL 10 MG/ML 20ML VIAL IV ONE (11:45)
[2020-05-06] MEDS ORDERED: LIDOCAINE HCL-MPF 2% 5ML VIAL ONE (11:45)
[2020-05-06] MEDS ORDERED: EPINEPHRINE 1 MG/ML AMPULE ONE (11:58)
--- NOTE | 2020-05-06 13:10 | NUR ---
RECEIVED PT FROM GI LAB @ 1210, PT WITH LARGE BLOODY BM, ELEVATED BP AND NO IV ACCESS. NOTIFIED DR PEREZ OF BLOODY BM, DR PEREZ STATED SHE PUT IN NEW ORDERS RE: THIS. NOTIFIED CHASE JIMENEZ OF INABILITY TO OBTAIN IV ACCESS AND ELEVATED BP,STATED TO HAVE FLOOR EITHER CONSULT CRITICAL CARE OR ANESTHESIA FOR POSSIBLE CENTRAL LINE PLACEMENT. STATED OK TO TRANSFER TO FLOOR BP 176/68 PT HAD NOT HAD BP MEDS THIS AM. REPORT GIVEN TO PETTY MURDOCK
--- NOTE | 2020-05-06 13:30 | NUR ---
PATIENT IS BACK FROM EGD DEPARTMENT. PATIENT HAS ARRIVED WITH NO IV LINE. IV HAD BEEN DISCONTINUED BY EGD DEPARTMENT. PATIENT HAS NO IV ACCESS.
[2020-05-06 13:32] LABS: BASOPHILS % (AUTO) 0.5 % (0.0-5.0); EOSINOPHILS % (AUTO) 0.6 % (0.0-8.0); HEMATOCRIT 24.7 % (36-48); LYMPHOCYTES % (AUTO) 23.2 % (21.0-51.0); MEAN CORPUSCULAR HGB CONC 33.6 g/dL (32.0-36.0); MEAN CORPUSCULAR VOLUME 89.2 fL (79-99); MONOCYTES % (AUTO) 8.2 % (3.0-13.0); NEUTROPHILS % (AUTO) 67.2 % (40.0-77.0); PLATELET COUNT (AUTO) 124 K/uL (130-400); RED BLOOD CELL COUNT(AUTO) 2.77 MIL/uL (4.00-5.50); RED CELL DISTRIBUTION WIDTH 15.4 % (11.0-15.5); WHITE BLOOD COUNT (AUTO) 9.6 K/uL (4.8-10.8)
--- NOTE | 2020-05-06 14:18 | NUR ---
[id number] patient signed IM Letter, I faxed IM Letter to [phone] and placed in chart under consent tab.
[2020-05-06] MEDS ORDERED: LIDOCAINE HCL 1% 20 ML VIAL ONE (14:33)
[2020-05-06] MEDS ORDERED: HYDRALAZINE HCL 20 MG/ML VIAL IV PRN (15:45)
--- NOTE | 2020-05-06 15:45 | NUR ---
CHART CHECK COMPLETED Pt IS A 75 Y.O. FEMALE ADMITTED SECONDARY TO GI BLEED. Pt HAS A PAST MEDICAL HISTORY SIGNIFICANT FOR HTN, DM, HLD, HYPOTHYROIDISM, ESRD on HD. Pt CURRENTLY NPO. PLEASE REQUEST FORMAL SKILLED SPEECH/SWALLOW EVALUATION IF Pt PRESENTS WITH +S/S OF ASPIRATION SUCH COUGH RESPONSE, THROAT CLEAR, OR WET VOCAL QUALITY DURING P.O. Addendum: 05/06/20 at 1548 by BALBIR CLEARY [facility] [address] Amended: Links added.
[2020-05-06] MEDS ORDERED: PEG 3350/NA SULF,BICARB,CL/KCL 4000 ML SOLN PO SCH (17:00)
[2020-05-06 19:38] LABS: HEMATOCRIT 24.7 % (36-48)
[2020-05-06] MEDS: ENALAPRILAT DIHYDRATE 1.25MG/ML 1ML VIAL IV PRN (20:12)
[2020-05-06] MEDS: LABETALOL HCL 5 MG/ML 20ML VIAL IV PRN (21:07)
[2020-05-06] MEDS ORDERED: NITROGLYCERIN 1GM/1 INCH PACKET TD SCH (22:00)
[2020-05-07] VITALS (67 sets, daily range): BP systolic 103–199; BP diastolic 35–67
[2020-05-07] MEDS ORDERED: NITROGLYCERIN 1GM/1 INCH PACKET TD ONE (00:39)
[2020-05-07 00:47] LABS: HEMATOCRIT 24.4 % (36-48)
[2020-05-07] MEDS: LABETALOL HCL 5 MG/ML 20ML VIAL IV PRN (01:01)
[2020-05-07] MEDS: PANTOPRAZOLE SODIUM 80 MG in NS 100ML IVP SCH ×2 (02:10→14:06)
[2020-05-07] MEDS: ENALAPRILAT DIHYDRATE 1.25MG/ML 1ML VIAL IV PRN (02:21)
[2020-05-07] MEDS: NICARDIPINE HCL 25 MG in SODIUM CHLORIDE 0.9% 240 ML IV SCH ×2 (03:07→13:06)
[2020-05-07] MEDS: INSULIN HUMULIN R 100 UNIT/ML 3ML SQ SCH ×4 (06:26→21:00)
[2020-05-07 07:03] LABS: HEMATOCRIT 22.7 % (36-48); MEAN CORPUSCULAR HEMOGLOBIN 29.8 pg (27.0-33.0); MEAN CORPUSCULAR HGB CONC 33.5 g/dL (32.0-36.0); RED BLOOD CELL COUNT(AUTO) 2.55 MIL/uL (4.00-5.50); RED CELL DISTRIBUTION WIDTH 15.2 % (11.0-15.5); WHITE BLOOD COUNT (AUTO) 7.1 K/uL (4.8-10.8)
[2020-05-07 07:15] LABS: CREATININE 6.5 mg/dL (0.5-1.5); POTASSIUM 4.5 mmol/L (3.5-5.1)
--- NOTE | 2020-05-07 10:25 | NUR ---
As per MATHIEU Head from Endo, instructions given per GI MD to keep patient on Clear liquid and later today MD will speak to patient for possible Colonoscopy
--- NOTE | 2020-05-07 15:00 | NUR ---
Call received from Emilio, spoke to Manuel, new instructions per Dr Ingram to call Dr Noriega, since he's more familiar with patient's case. Called office of Dr Noriega, spoke to mayra Siddiquiing to return call
--- NOTE | 2020-05-07 15:20 | NUR ---
Scheduled Colonoscopy for tomorrow, as per Dr Noriega, spoke to Edvin from Scheduling
[2020-05-07] MEDS: ONDANSETRON HCL 4 MG/2 ML VIAL IVP PRN (17:38)
[2020-05-07] MEDS ORDERED: COMPOUND IV REFRIGERATED 1 EACH IVSOLN MISC PRN (18:45)
[2020-05-07] MEDS ORDERED: COMPOUND IV MISC 1 EACH IVSOLN MISC PRN (18:45)
[2020-05-07 21:03] LABS: HEMATOCRIT 22.2 % (36-48)
[2020-05-08] VITALS (58 sets, daily range): BP systolic 96–177; BP diastolic 30–60
[2020-05-08] MEDS: PANTOPRAZOLE SODIUM 80 MG in NS 100ML IVP SCH (00:13)
[2020-05-08] MEDS: NICARDIPINE HCL 25 MG in SODIUM CHLORIDE 0.9% 240 ML IV SCH ×2 (00:16→12:27)
[2020-05-08 03:36] LABS: HEMATOCRIT 21.4 % (36-48); MEAN CORPUSCULAR HGB CONC 33.6 g/dL (32.0-36.0); MEAN CORPUSCULAR VOLUME 89.2 fL (79-99); RED BLOOD CELL COUNT(AUTO) 2.4 MIL/uL (4.00-5.50); RED CELL DISTRIBUTION WIDTH 14.6 % (11.0-15.5); WHITE BLOOD COUNT (AUTO) 7.9 K/uL (4.8-10.8)
[2020-05-08 03:45] LABS: POTASSIUM 3.7 mmol/L (3.5-5.1)
[2020-05-08] MEDS: INSULIN HUMULIN R 100 UNIT/ML 3ML SQ SCH ×4 (05:19→20:31)
--- NOTE | 2020-05-08 07:25 | NUR ---
Transferred to Endoscopy via bed, accompanied per Endo nurse, for scheduled Colonoscopy
[2020-05-08] MEDS ORDERED: PHENYLEPHRINE HCL 10 MG/ML 1ML VIAL IV ONE (08:13)
[2020-05-08] MEDS ORDERED: PROPOFOL 10 MG/ML 20ML VIAL IV ONE (08:13)
--- NOTE | 2020-05-08 09:45 | NUR ---
Back in room from Endo, S/P Colonoscopy, AAOx3, unlabored respirations noted, no signs of distress noted or reported, vital signs stable, O2 sat at 100% on room air.
[2020-05-08 09:58] LABS: HEMATOCRIT 21.6 % (36-48)
[2020-05-08 15:15] LABS: HEMATOCRIT 22.3 % (36-48)
[2020-05-08] MEDS: HYDRALAZINE HCL 25 MG TABLET PO SCH ×2 (15:22→20:38)
[2020-05-08] MEDS: CLONIDINE HCL 0.2 MG TABLET PO SCH (20:38)
[2020-05-08] MEDS: METOPROLOL TARTRATE 50 MG TAB PO SCH (20:46)
[2020-05-08 21:20] LABS: HEMATOCRIT 22.4 % (36-48)
[2020-05-09] VITALS (18 sets, daily range): BP systolic 102–151; BP diastolic 24–59
[2020-05-09 03:56] LABS: POTASSIUM 3.8 mmol/L (3.5-5.1)
[2020-05-09 05:54] LABS: MEAN CORPUSCULAR HGB CONC 32.7 g/dL (32.0-36.0); MEAN CORPUSCULAR VOLUME 91.8 fL (79-99); RED BLOOD CELL COUNT(AUTO) 2.2 MIL/uL (4.00-5.50); WHITE BLOOD COUNT (AUTO) 5.3 K/uL (4.8-10.8)
[2020-05-09] MEDS: INSULIN HUMULIN R 100 UNIT/ML 3ML SQ SCH ×4 (05:57→21:00)
[2020-05-09] MEDS: LEVOTHYROXINE 112 MCG TABLET PO SCH (05:57)
[2020-05-09 05:58] LABS: HEMATOCRIT 20.2 % (36-48)
[2020-05-09] MEDS ORDERED: NIFEDIPINE 90 MG PO SCH (07:30)
--- NOTE | 2020-05-09 07:30 | NUR ---
ASSESSMENT PT IS AAOX3 DENIES CP DENIES SOB DENIES, DENIES DIZZINESS. NV NO COMPLAINTS AT THIS TIME. SITTING UPRIGHT IN BED. EATING CLEAR LIQUID DIET. CALL LIGHT WITHIN REACH.
[2020-05-09] MEDS: SIMVASTATIN 10 MG TABLET PO SCH (07:59)
[2020-05-09] MEDS: Vitamin B Complex/Vit C/Folic Acid PO SCH (07:59)
[2020-05-09] MEDS: LISINOPRIL 40 MG TABLET PO SCH (08:00)
[2020-05-09] MEDS: METOPROLOL TARTRATE 50 MG TAB PO SCH ×2 (08:00→21:00)
[2020-05-09] MEDS: NIFEDIPINE ER 30 MG TAB PO SCH (08:00)
[2020-05-09] MEDS: HYDRALAZINE HCL 25 MG TABLET PO SCH ×3 (08:00→21:00)
[2020-05-09] MEDS ORDERED: NON-FORMULARY MEDICATION 1 EACH (Vit B Cmplx 3/FA/Vit C/Biotin (Rena-Vite Rx Tablet) 1 EAC PO SCH (09:00)
[2020-05-09] MEDS: CLONIDINE HCL 0.2 MG TABLET PO SCH ×2 (09:00→21:00)
--- NOTE | 2020-05-09 10:15 | NUR ---
SARI MURRY ROUNDED SAW PATIENT, ORDERS RECEIVED
[2020-05-09 10:25] LABS: HEMATOCRIT 21.3 % (36-48)
--- NOTE | 2020-05-09 15:00 | NUR ---
STATUS PT IS AAOX3 DENIES CP DENIES SOB DENIES NV NO COMPLAINTS, CALL LIGHT WITHIN REACH. PT REMAINS ON ROOM AIR, BREATHING PATTERN IS EVEN AND UNLABORED.
--- NOTE | 2020-05-09 15:30 | NUR ---
SARI MURRY ROUNDING OK TO TRANSFER TO [facility] WITH TELE. PLAN FOR 1 UNIT TRANSFUSION WITH HD TOMORROW. ORDERS PLACED IN CPOE.
--- NOTE | 2020-05-09 18:30 | NUR ---
REPORT GIVEN TO TAZ HOOVER PT AND ALL BELONGINGS TAKEN UP TO ROOM 312. PT IS AAOX3 DENIES CP DENIES SOB DENIES NV. TELE PACK ON PATIENT.
[2020-05-10 00:57] VITALS: BP 148/47
[2020-05-10 04:05] VITALS: BP 158/51
[2020-05-10 05:59] LABS: POTASSIUM 3.8 mmol/L (3.5-5.1)
[2020-05-10 06:00] LABS: HEMATOCRIT 21.7 % (36-48); MEAN CORPUSCULAR HEMOGLOBIN 29.9 pg (27.0-33.0); MEAN CORPUSCULAR HGB CONC 32.3 g/dL (32.0-36.0); MEAN CORPUSCULAR VOLUME 92.7 fL (79-99); RED BLOOD CELL COUNT(AUTO) 2.34 MIL/uL (4.00-5.50); RED CELL DISTRIBUTION WIDTH 15.1 % (11.0-15.5); WHITE BLOOD COUNT (AUTO) 6.5 K/uL (4.8-10.8)
[2020-05-10] MEDS: LEVOTHYROXINE 112 MCG TABLET PO SCH (06:10)
[2020-05-10] MEDS: INSULIN HUMULIN R 100 UNIT/ML 3ML SQ SCH ×2 (06:30→11:30)
[2020-05-10 06:33] LABS: CREATININE 7.9 mg/dL (0.5-1.5)
[2020-05-10 07:54] VITALS: BP 177/59
[2020-05-10] MEDS: Vitamin B Complex/Vit C/Folic Acid PO SCH (09:00)
[2020-05-10] MEDS: CLONIDINE HCL 0.2 MG TABLET PO SCH (09:00)
[2020-05-10] MEDS: LISINOPRIL 40 MG TABLET PO SCH (09:00)
[2020-05-10] MEDS: SIMVASTATIN 10 MG TABLET PO SCH (09:00)
[2020-05-10] MEDS: HYDRALAZINE HCL 25 MG TABLET PO SCH ×2 (09:00→13:54)
[2020-05-10] MEDS: METOPROLOL TARTRATE 50 MG TAB PO SCH (09:00)
[2020-05-10] MEDS: NIFEDIPINE ER 30 MG TAB PO SCH (09:00)
[2020-05-10 11:33] VITALS: BP 183/72
[2020-05-10] MEDS ORDERED: SODIUM CHLORIDE 0.9% 250 ML IV ONE (12:04)
--- NOTE | 2020-05-10 15:34 | NUR ---
CENTRAL LINE REMOVED W/O DIFFICULTY OR COMPLICATION WHILE THE PT WAS SITTING UP. THE SITE WAS CLEANED WITH BETADINE AND THEN COVERED WITH GAUZE AND TEGADERM WITH TAPE. PRESSURE WAS HELD FOR 10 MINUTES AND NOW THE PT CONTINUES TO HOLD PRESSURE ON THE SITE
--- NOTE | 2020-05-10 16:31 | NUR ---
PT DISMISSED BY W/C IN GOOD CONDITION ACCOMPANIED BY SPOUSE AND STAFF. ROSELYN C/D/I
== END 2020-05-10 16:15 | disposition home or self-care (01) | DRG 377 ==
LOC: EDH 02:59 → EDHIP 05:45 → OBSVTOIN 05:45 → 2DH 15:21 → 3BH 05-09 19:36
PROVIDERS: ADMIT Internal Medicine Critical Care Medicine; ATTEND Internal Medicine Critical Care Medicine
PROC: 5A1D70Z Performance of Urinary Filtration, Intermittent, Less than 6 Hours Per Day (ICD-10-PCS; 2020-05-05)
PROC: 30233N1 Transfusion of Nonautologous Red Blood Cells into Peripheral Vein, Percutaneous Approach (ICD-10-PCS; 2020-05-05)
PROC: 0W3P8ZZ Control Bleeding in Gastrointestinal Tract, Via Natural or Artificial Opening Endoscopic (ICD-10-PCS; principal; 2020-05-06)
PROC: 02HV33Z Insertion of Infusion Device into Superior Vena Cava, Percutaneous Approach (ICD-10-PCS; 2020-05-06)
PROC: 5A1D70Z Performance of Urinary Filtration, Intermittent, Less than 6 Hours Per Day (ICD-10-PCS; 2020-05-07)
PROC: 0DBK8ZZ Excision of Ascending Colon, Via Natural or Artificial Opening Endoscopic (ICD-10-PCS; 2020-05-08)
PROC: 0DBM8ZZ Excision of Descending Colon, Via Natural or Artificial Opening Endoscopic (ICD-10-PCS; 2020-05-08)
PROC: 0W3P8ZZ Control Bleeding in Gastrointestinal Tract, Via Natural or Artificial Opening Endoscopic (ICD-10-PCS; 2020-05-08)
PROC: 5A1D70Z Performance of Urinary Filtration, Intermittent, Less than 6 Hours Per Day (ICD-10-PCS; 2020-05-10)
DX: K29.71 Gastritis, unspecified, with bleeding (principal); N18.6 End stage renal disease; D62 Acute posthemorrhagic anemia; I12.0 Hypertensive chronic kidney disease with stage 5 chronic kidney disease or end stage renal disease; K63.3 Ulcer of intestine; K25.4 Chronic or unspecified gastric ulcer with hemorrhage; E11.22 Type 2 diabetes mellitus with diabetic chronic kidney disease; E78.5 Hyperlipidemia, unspecified; M19.90 Unspecified osteoarthritis, unspecified site; E11.21 Type 2 diabetes mellitus with diabetic nephropathy; K63.5 Polyp of colon; E03.9 Hypothyroidism, unspecified; Z99.2 Dependence on renal dialysis
CPT/HCPCS: 36415; 36430; 43236; 43239; 43251; 43255; 45380; 45385; 71045; 74176; 80048; 80053; 82270; 82550; 82948; 83605; 83690; 84484; 85014; 85018; 85025; 85027; 85610; 85730; 86850; 86900; 86901; 86923; 90935; 93005; A4606; A6250; C9113; G0378; J0171; J2250; J2370; J2405; J2704; J3490; J7030; J7040; J7050; P9016; U0003

== ENCOUNTER → 2020-08-04 | Outpatient (CLI) | payer OTHER ==
[~2020-08-04] MED LIST changes: -LISI40TA4 PO; +LISI40TA9 PO
== END | disposition home or self-care (01) ==
LOC: RAH 13:10
PROVIDERS: ATTEND Family Medicine
DX: R92.0 Mammographic microcalcification found on diagnostic imaging of breast (principal); R92.8 Other abnormal and inconclusive findings on diagnostic imaging of breast
CPT/HCPCS: 76641; 77066

== ENCOUNTER → 2022-09-14 | Outpatient (CLI) | payer OTHER | END | disposition home or self-care (01) | LOC: RAH 09:44 | PROVIDERS: ATTEND Family Medicine | DX: Z12.31 Encounter for screening mammogram for malignant neoplasm of breast (principal) | CPT/HCPCS: 77067 ==

== ENCOUNTER → 2024-01-01 | Outpatient (CLI) | payer OTHER ==
[~2024-01-01] MED LIST changes: -HYDR-4153 PO; +HYDR25TA67 PO
== END | disposition home or self-care (01) ==
LOC: RAH 10:10
PROVIDERS: ATTEND Family Medicine
DX: Z12.31 Encounter for screening mammogram for malignant neoplasm of breast (principal)
CPT/HCPCS: 77067

== ENCOUNTER → 2024-10-21 | Outpatient (CLI) | payer OTHER ==
[~2024-10-21] MED LIST changes: +GLIP10TA16 PO; -GLIP10TA9 PO
--- NOTE | 2024-10-21 16:05 | HMCIMG ---
Lumbar spine 2 views Clinical Information: LOWER BACK PAIN Comparison: None Findings: Exam of the lumbosacral spine demonstrates no evidence of fracture, subluxation. There are spondylitic changes and there are degenerative changes of the facet joints. There is straightening of the spine consistent with spasm. There is narrowing of the L5-S1 intervertebral disc space consistent with degenerative disc disease. The other disc spaces are intact. Bone mineralization is normal. Impression: Degenerative disc disease suspected at L5-S1. Other degenerative and chronic changes as noted.
--- NOTE | 2024-10-21 16:25 | HMCIMG ---
Exam Type: HIP UNILAT 2-3VW LEFT Clinical Information: LEFT HIP PAIN Comparison: None Findings: There is osteopenia. The examination is otherwise unremarkable. No fractures or dislocations are seen. No radiopaque foreign bodies are noted. Soft tissues are preserved. IMPRESSION: Osteopenia. Otherwise normal exam.
== END | disposition home or self-care (01) ==
LOC: RAH 14:21
PROVIDERS: ATTEND Family Medicine
DX: M47.816 Spondylosis without myelopathy or radiculopathy, lumbar region (principal); M48.07 Spinal stenosis, lumbosacral region; M85.88 Other specified disorders of bone density and structure, other site; M54.50 Low back pain, unspecified; M25.552 Pain in left hip
CPT/HCPCS: 72100; 73502

== ENCOUNTER → 2025-01-08 | Outpatient (CLI) | payer OTHER ==
[~2025-01-08] MED LIST changes: +LISI40TA15 PO; -LISI40TA9 PO
== END | disposition home or self-care (01) ==
LOC: RAH 11:11
PROVIDERS: ATTEND Family Medicine
DX: Z12.31 Encounter for screening mammogram for malignant neoplasm of breast (principal)
CPT/HCPCS: 77067

== ENCOUNTER 2025-02-05 18:16 | Observation (INO) | payer OTHER ==
[~2025-02-05] VITALS: Ht 157.5 cm; Wt 62.1 kg
--- NOTE | 2025-02-05 18:28 | ERN ---
ED Note History of Present Illness Stated Complaint: WEAKNESS Chief Complaint: Weakness Time Seen by MD: 18:23 Dictation: PATIENT IS A 79-YEAR-OLD FEMALE HERE WITH HER DAUGHTER WITH COMPLAINTS OF NAUSEA VOMITING GENERALIZED BODY WEAKNESS ONSET WAS YESTERDAY. SHE HAS HAD FEVER CHILLS IN THE BEGINNING OF THE WEEK, SAW HER PRIMARY CARE DOCTOR IN DIAGNOSED WITH COVID-19 INFECTION. SHE IS CURRENTLY AFEBRILE HOWEVER SHE DOES HAVE A SIGNIFICANT MEDICAL HISTORY TO INCLUDE END-STAGE RENAL DISEASE WITH HEMODIALYSIS Sunday AND SUNDAY, PATIENT OF DR. LIRIANO. NO ABDOMINAL PAIN AT THIS TIME SHE DOES STATE SHE HAS NOT BEEN ABLE TO KEEP FOOD DOWN SINCE YESTERDAY. LAST HEMODIALYSIS WAS SUNDAY. Allergies: Coded Allergies: No Known Drug Allergies (Unverified Allergy, Unknown, 12/07/19) No Known Food Allergies (Unverified Allergy, Unknown, 12/07/19) Home Meds Active Scripts Clonidine HCl (Catapress 0.2 mg Tab) 0.2 Mg Tablet, 0.2 MG PO BID for 30 Days, #60 TAB Prov:ODESSA MCINTOSH DECORATING MACHINE OPERATOR 12/11/19 Reported Medications Lisinopril (Lisinopril) 40 Mg Tablet, 40 MG PO DAILY, TAB 05/04/20 Sucroferric Oxyhydroxide (Velphoro) 500 Mg Tab.chew, 500 MG PO BID, TAB.CHEW 05/04/20 Hydralazine HCl (Hydralazine HCl) 25 Mg Tablet, 25 MG PO TID, TAB 05/04/20 Metoprolol Tartrate (Metoprolol Tartrate) 50 Mg Tablet, 50 MG PO BID, TAB 05/04/20 Levothyroxine Sodium (Levothyroxine Sodium) 112 Mcg Tablet, 112 MCG PO DAILY 12/07/19 Nifedipine (Nifedipine ER) 60 Mg Tab.er.24, 90 MG PO ACBKFST 05/16/18 Glipizide (Glipizide) 10 Mg Tablet, 10 MG PO AM, TAB 05/16/18 Vit B Cmplx 3/FA/Vit C/Biotin (Alea-[place] Rx Tablet) 1 Each Tablet, 1 EACH PO AM, TAB 05/16/18 Sitagliptin Phosphate (Januvia) 25 Mg Tablet, 25 MG PO DAILY, TAB 05/16/18 Insulin Glargine,Hum.rec.anlog (Lantus) 100 Units/Ml Inj, 28 UNITS SQ HS, ML HOLD FOR BLOOD SUGAR LESS THAN 200 09/12/15 Simvastatin (Simvastatin) 10 Mg Tablet, 10 MG PO DAILY, TAB 09/12/15 Past Medical History Past Medical History: Diabetes-Type II, High Cholesterol, Hypertension, Renal Failure Surgical History: Other History: Not Applicable RN Note Reviewed/Agreed w/PFSH: Yes Review of System Dictation CONSTITUTIONAL: NEGATIVE EXCEPT FOR HPI GENERALIZED BODY WEAKNESS HEAD/FACE: NEGATIVE EXCEPT FOR HPI EENT: NEGATIVE EXCEPT FOR HPI RESPIRATORY: NEGATIVE EXCEPT FOR HPI SOB MILD GASTROINTESTINAL/ABDOMINAL: NEGATIVE EXCEPT FOR HPI NAUSEA VOMITING GENITOURINARY: NEGATIVE EXCEPT FOR HPI MUSCULOSKELETAL: NEGATIVE EXCEPT FOR HPI INTEGUMENTARY: NEGATIVE EXCEPT FOR HPI NEUROLOGICAL/PSYCH: NEGATIVE EXCEPT FOR HPI HEMATOLOGIC/LYMPHATIC: NEGATIVE EXCEPT FOR HPI ALL SYSTEMS NEGATIVE, EXCEPT NOTED ABOVE. 13 POINT REVIEW OF SYSTEMS ASSESSED AND ALL NEGATIVE EXCEPT FOR ABOVE. Initial Vital Sign VS Vital Signs Date Time Temp Pulse Resp B/P (MAP) Pulse Ox O2 Delivery O2 Flow Rate FiO2 02/05/25 18:19 98.1 74 20 191/64 99 Room Air 0 02/05/25 20:04 21 Physical Exam Dictation VITAL SIGNS REVIEWED GENERAL APPEARANCE: ALERT, ORIENTED X 3, PATIENT COMPLAINING OF BEING WEAK GENERALIZED. NO FOCAL PAIN. HEAD AND FACE: NON-TRAUMATIC. EYES: PERRL, PINK CONJUNCTIVAS, EYELID NO TRAUMA, ANTERIOR CHAMBER WITH ARCUS SENILIS. EARS: PINNAS INTACT AND NO SIGNS OF TRAUMA OR ERYTHEMA EAR CANALS CLEAR AND NO DISCHARGE TM NO ERYTHEMA NOSE: NO DISCHARGE, NO BLEEDING. OROPHARYNX: MOUTH NORMAL, TONGUE PINK, PHARYNX CLEAR,NO ERYTHEMA, TONSILS NO EXUDATES, NO ABSCESSES NOTED, MUCOUS MEMBRANE MOIST NECK: SUPPLE, NON-TENDER, NO THYROMEGALY, NO MASSES, NO JVD, NO BRUITS BREAST:DEFERRED CHEST:NO TENDERNESS, NO CREPITUS, NO PARADOXICAL MOVEMENT, NO RETRACTIONS LUNGS:CLEAR, WELL-VENTILATED, SYMMETRIC, NO RALES, NO WHEEZING, NO RHONCHI, NO STRIDOR, GOOD BREATH SOUNDS BILATERALLY HEART: REGULAR RATE, REGULAR RHYTHM, NO MURMUR, NO GALLOPS VASCULAR: NO PERIPHERAL EDEMA, ABDOMEN: SOFT, POSITIVE BOWEL SOUNDS, NONDISTENDED, NO GUARDING, NONTENDER, NO REBOUND, NO MASSES NO HEPATOMEGALY, NO SPLENOMEGALY, NO CRENSHAW'S S IGN, NO HERNIAS. RECTAL: DEFERRED GENITAL: DEFERRED NEUROLOGICAL: NORMAL SPEECH, MOTOR FUNCTION INTACT, SENSORY FUNCTION INTACT MUSCULOSKELETAL: NECK NONTENDER, FULL RANGE OF MOTION, BACK NONTENDER, FULL RANGE OF MOTION, EXTREMITIES: NONTENDER, FULL RANGE OF MOTION SKIN: COLOR PINK, DRY, NO TURGOR, NO RASH, NO LACERATIONS, NO ABRASIONS, NO CONTUSIONS. LYMPHATIC: DEFERRED Results (Laboratory/Radiology) Laboratory/Radiology Laboratory Tests Test 02/05/25 18:49 White Blood Count 4.6 K/uL (4.8-10.8) L Red Blood Count 4.13 MIL/uL (4.00-5.50) Hemoglobin 12.4 g/dL (12.0-16.0) Hematocrit 38.1 % (36-48) Mean Corpuscular Volume 92.3 fL (79-99) Mean Corpuscular Hemoglobin 30.0 pg (27.0-33.0) Mean Corpuscular Hemoglobin Concent 32.5 g/dL (32.0-36.0) Red Cell Distribution Width 14.2 % (11.0-15.5) Platelet Count 160 K/uL (130-400) Mean Platelet Volume 9.6 fL (7.5-10.5) Immature Granulocyte % (Auto) 0.0 % (0-1) Neutrophils (%) (Auto) 52.6 % (40.0-77.0) Lymphocytes (%) (Auto) 34.7 % (21.0-51.0) Monocytes (%) (Auto) 11.8 % (3.0-13.0) Eosinophils (%) (Auto) 0.2 % (0.0-8.0) Basophils (%) (Auto) 0.7 % (0.0-5.0) Neutrophils # (Auto) 2.4 K/uL (1.8-7.7) Lymphocytes # (Auto) 1.6 K/uL (1.0-4.8) Monocytes # (Auto) 0.5 K/uL (0.1-1.0) Eosinophils # (Auto) 0.01 K/uL (0.00-0.70) Basophils # (Auto) 0.03 K/uL (0.00-0.20) Absolute Immature Granulocyte (auto 0.00 K/uL (0-1) Nucleated Red Blood Cells 0.0 % (0.0-0.19) Sodium Level 134 mmol/L (136-145) L Potassium Level 4.3 mmol/L (3.5-5.1) Chloride Level 92 mmol/L (101-111) L Carbon Dioxide Level 30 mmol/L (21-32) Blood Urea Nitrogen 37 mg/dL (7-18) H Creatinine 7.1 mg/dL (0.5-1.0) H Glomerular Filtration Rate Calc 5 mL/min (>90) Random Glucose 144 mg/dL (70-105) H Total Calcium 9.1 mg/dL (8.5-10.1) Troponin I High Sensitivity 23 ng/L (4-50) B-Type Natriuretic Peptide 685 pg/mL (0-100) H EXAM: CR Chest, 1 View. CLINICAL HISTORY: SHORTNESS A BREATH COMPARISON: Radiograph dated May 06, 2020 FINDINGS: LUNGS: There is no mass, infiltrate, or acute pulmonary abnormality. PLEURAL SPACES: No pleural effusion or pneumothorax. MEDIASTINUM: The cardiomediastinal silhouette is within normal limits. BONES: No acute osseous abnormality. Clips project over the right upper quadrant, and right arm soft tissues. Vascular stent overlies the soft tissues of the proximal left arm. IMPRESSION: 1. No acute cardiopulmonary findings. /Simms Labs Reviewed?: Yes EKG Comment: EKG SINUS RHYTHM/HEART RATE 77/AXIS NORMAL/RIGHT BUNDLE BRANCH BLOCK ED Course ED Course Orders Procedure Category Date Status Time Cbc With Differential LAB 02/05/25 Complete 18:23 Troponin I High LAB 02/05/25 Complete Sensitivity 18:23 12 Lead Ekg Tracing- EKG 02/05/25 Complete Technical 18:23 Ondansetron 4mg Inj PHA 02/05/25 In Process (Zofran 4mg Inj) 18:30 Chest 1vw RAD 02/05/25 Resulted 18:23 Basic Metabolic Panel LAB 02/05/25 Complete 18:23 B-Type Natriuretic LAB 02/05/25 Complete Peptide 18:23 0.9% Nacl 500ml PHA 02/05/25 In Process Iv.Soln (Ns 500ml 18:30 Nephrology Consult CONPHYSVC 02/05/25 Transmitted 20:54 Current Medications Medications (Trade) Dose Ordered Sig/Domo Route PRN Reason Start Time Stop Time Status Last Admin Dose Admin Ondansetron HCl (zoFRAN 4MG INJ) 4 mg ONCE IVP 02/05/25 18:30 02/05/25 22:30 02/05/25 20:53 Sodium Chloride 500 ml @ 0 mls/hr ONCE IV 02/05/25 18:30 02/06/25 18:29 Vital Signs Date Time Temp Pulse Resp B/P (MAP) Pulse Ox O2 Delivery O2 Flow Rate FiO2 02/05/25 20:04 98.1 74 20 191/64 99 Room Air* 0 21 02/05/25 18:19 98.1 74 20 191/64 99 Room Air 0 2049/SPOKE WITH PATIENT AND DAUGHTER AT LENGTH. PATIENT IS NAUSEATED WITHOUT VOMITING NOW SHE HAS VOMITED A TIMES A DAY AND 10 YESTERDAY. NO ABDOMINAL PAIN AT THIS TIME. NO FEVER NO CHILLS I WE WILL ADMIT PATIENT TO THE HOSPITAL FOR REHYDRATION HEMODIALYSIS TOMORROW MANAGEMENT OF HER INTRACTABLE NAUSEA VOMITING 2104/SPOKE WITH TIP MARES HOSPITALIST REGARDING PATIENT REVIEWED HER LABS EKG A ND INTERVENTIONS FOR NAUSEA VOMITING. HEART Score Response (Comments) Value EKG: Repolarization changes 1 Age: > 65yrs (+2) 2 Risk Factors: 3+ risk factors (+2) 2 Initial Troponin: Normal limit (0) 0 Total 5 Medical Decision Making MDM MDM: DIFFERENTIAL DIAGNOSIS: ACS/AMI/ELECTROLYTE IMBALANCE/DEHYDRATION/INTRACTABLE VOMITING/ACS RATIONALE: TESTS CONSIDERED AND ORDERED SECONDARY TO SHARED DECISION MAKING INCLUDE: LABS, ECG AND RADIOLOGY PREVIOUS OUTSIDE RECORDS REVIEWED: OLD ER VISITS. RISK OF COMPLICATION AND/OR MORBIDITY OR MORTALITY OF PATIENT MANAGEMENT: MILD MEDICATIONS-PER MEDICATION RECONCILIATION NEED FOR HOSPITALIZATION: PATIENT DOES MEET CRITERIA FOR HOSPITALIZATION. SHE WILL NEED TO BE ADMITTED FOR CONTROL OF NAUSEA VOMITING AND HEMODIALYSIS TOMORROW. NEED FOR EMERGENCY MAJOR/MINOR SURGERY: NO THERE ARE NO SOCIAL CONCERNS WITH THIS PATIENT. PRESCRIPTION DRUG MANAGEMENT PRESCRIPTIONS WILL INCLUDE SYMPTOMATIC CARE PATIENT'S PRIOR EXTERNAL MEDICAL RECORDS FROM OTHER ER VISITS WERE REVIEWED BY ME INDICATED. PRIOR TESTING AND RESULTS FROM PREVIOUS VISITS WERE REVIEWED. PRIOR TESTS WERE TAKEN INTO ACCOUNT WITH MEDICAL DECISION MAKING AND RESOURCE UTILIZATION, INDEPENDENT HISTORIAN/HISTORIANS WERE USED TO OBTAIN COMPLETE MEDICAL HISTORY. I INDEPENDENTLY INTERPRETED THE TEST THAT WERE PERFORMED, RESULTS WERE REVIEWED BY ME AND CONSIDERED FINDINGS ON RADIOLOGY IF ORDERED. MEDICAL MANAGEMENT AND EXAMINATION INTERPRETATION DISCUSSIONS WERE HAD BY ME WITH OTHER QUALIFIED HEALTHCARE PROFESSIONALS INDICATED FOR THE PATIENT'S CARE. MDM: DIFFERENTIAL DIAGNOSIS: CONTUSION, ABRASION, FRACTURE, INTRACRANIAL BLEED DATA REVIEWED: VITAL SIGNS, NURSES NOTES COUNSELING: I HAD A DETAILED DISCUSSION WITH THE PATIENT AND/OR GUARDIAN REGARDING: THE CONCERNS RAISED BY THEIR PRESENTING COMPLAINTS AND EXAM AND THE PLAN FOR TESTING AND MANAGEMENT IN THE ED TODAY. THE NEED FOR OUTPATIENT FOLLOW UP, A FAMILY PRACTITIONER, TO RETURN TO THE EMERGENCY DEPARTMENT IF SYMPTOMS WORSEN OR PERSIST OR IF THERE ARE ANY QUESTIONS OR CONCERNS THAT ARISE AT HOME. SPECIAL DISCUSSION: I DISCUSSED WITH THE PATIENT/GUARDIAN IN DETAIL THAT AT THIS POINT THERE IS NO INDICATION FOR ADMISSION TO THE HOSPITAL. IT IS UNDERSTOOD, HOWEVER, THAT IF THE SYMPTOMS PERSIST OR WORSEN THE PATIENT NEEDS TO RETURN IMMEDIATELY FOR RE-EVALUATION. BASED ON THE HISTORY AND EXAM FINDINGS, THERE IS NO INDICATION FOR FURTHER EMERGENT TESTING OR INPATIENT EVALUATION. I DISCUSSED WITH THE PATIENT/GUARDIAN THE NEED TO SEE THE PRIMARY CARE PROVIDER FOR FURTHER EVALUATION OF THE SYMPTOMS. DX & DISP Disposition: Inpatient Decision to Admit Time: 20:56 Departure Impression: Primary Impression: Nausea & vomiting Additional Impressions: Fluid overload, ESRD needing dialysis, Anemia of chronic kidney failure, Hypochloremia, Hyponatremia, Uncontrolled diabetes mellitus Condition: Stable Referrals: JULY ORELLANA MD (PCP) Time of Disposition: 20:56 I have reviewed the case, and I agree with, Diagnosis and Plan MARLENY WELLINGTON NP Feb 05, 2025 18:28
[2025-02-05] MEDS: 0.9% NACL 500ML IV.SOLN 500 ML IV SCH (18:30)
[2025-02-05 18:55] LABS: IMMATURE GRANULOCYTE ABSOLUTE 0.00 K/uL (0-1); NUCLEATED RED BLOOD CELLS 0.0 % (0.0-0.19); PLATELET COUNT (AUTO) 160 K/uL (130-400); RED BLOOD CELL COUNT(AUTO) 4.13 MIL/uL (4.00-5.50); RED CELL DISTRIBUTION WIDTH 14.2 % (11.0-15.5); WHITE BLOOD COUNT (AUTO) 4.6 K/uL (4.8-10.8)
[2025-02-05 19:02] LABS: CREATININE 7.1 mg/dL (0.5-1.0); GLOMERULAR FILTR. RATE CALC 5.0 mL/min (>90); GLUCOSE,RANDOM 144.0 mg/dL (70-105); SODIUM SERUM 134.0 mmol/L (136-145); UREA NITROGEN, BLOOD 37.0 mg/dL (7-18)
--- NOTE | 2025-02-05 19:19 | HMCIMG ---
EXAM: CR Chest, 1 View. CLINICAL HISTORY: SHORTNESS A BREATH COMPARISON: Radiograph dated May 06, 2020 FINDINGS: LUNGS: There is no mass, infiltrate, or acute pulmonary abnormality. PLEURAL SPACES: No pleural effusion or pneumothorax. MEDIASTINUM: The cardiomediastinal silhouette is within normal limits. BONES: No acute osseous abnormality. Clips project over the right upper quadrant, and right arm soft tissues. Vascular stent overlies the soft tissues of the proximal left arm. IMPRESSION: 1. No acute cardiopulmonary findings. /Avery
--- NOTE | 2025-02-05 19:36 | EKG ---
[facility] Test Date: 2025-02-05 Test Time: 19:31:35 Pat Name: DOROTA WEISS Department: EDH Room: ED Gender: F Hop Separator: 1378 : 1945 Requested By: MARLENY WELLINGTON Order Number: [id number] Reading MD: Angel Yuen Measurements Intervals [place] Rate: 77 P: 78 OK: 187 QRS: 27 QRSD: 134 T: -6 QT: 447 QTc: 506 Interpretive Statements Sinus rhythm Right bundle branch block Compared to ECG 05/05/2020 03:34:21 Right bundle-branch block now present Electronically Signed On 02-06-2025 13:23:37 CDT by Angel Yuen Please click the below link to view image of tracing.
--- NOTE | 2025-02-05 22:16 | HP ---
[facility] HISTORY & PHYSICAL Date Patient Seen: Feb 05, 2025 Time of Visit: 22:16 Supervising Physician: Dr. Hubbard Primary Care Physician: JULY ORELLANA MD (PCP) Outpatient Specialists: [ ] Inpatient Consults: Nephrology PROBLEM LIST: Intractable nausea and vomiting POA. Dehydration POA. ESRD on HD MWF POA. Hypertension with hypertensive urgency on admission POA. Hyperlipidemia. Diabetes mellitus. HPI: This is a 79-year-old female patient who has past medical history that is significant for Diabetes-Type II, High Cholesterol, Hypertension, Renal Failure on HD MWF with last dialysis on 02/04/2025. Per patient report, she began with nausea and vomiting which later progressed to generalized body weakness. The patient reports she was not able to keep anything down, even her meals. She contacted her PCP who started her on Imodium but found no relief as she was not able to keep the medication down. For this reason, the patient came into the emergency department for further evaluation and management of her condition. Upon initial evaluation in the emergency department, vital signs showed elevated blood pressure reading. There was no febrile events, tachycardia or tachypnea. Laboratory data showed no WBC count elevation. Chemistry panel showed slightly low sodium and chloride levels. Renal parameters were elevated with a BUN of 37, creatinine of 7.1 and a GFR 5, consistent with her renal disease. Patient had a BNP level of 685. Imaging of the chest was obtained and showed no acute airspace disease. The patient was subsequently admitted for further inpatient evaluation and management of her condition. At the time of my visit, the patient remained in the emergency department awaiting bed assignment. The staff nurse reports no acute events since admission. No other complaint. PAST MEDICAL HX: see above PAST SURGICAL HX: noncontributory SOCIAL HISTORY: No tobacco, ETOH, or illicit drug use Coded Allergies: No Known Drug Allergies (Unverified Allergy, Unknown, 12/07/19) No Known Food Allergies (Unverified Allergy, Unknown, 12/07/19) REVIEW OF SYSTEMS: 12 point ROS reviewed with patient. Pertinent positives mentioned above. Otherwise negative. PHYSICAL EXAM: GENERAL: Alert, weak, awake oriented x 3 HEENT: EOMI, Sclera non icteric, moist mucosa NECK: Supple, no JVD, trachea midline LUNGS: Clear breath sounds bilaterally. No wheezes HEART: Regular rate and rhythm. Normal S1 and S2, without murmurs ABD: Abdomen soft, nontender. Bowel sounds present EXT: No clubbing cyanosis or edema NEURO: Alert and oriented to person, follows commands Vital Signs (last 8hr) Date Time Temp Pulse Resp B/P (MAP) Pulse Ox O2 Delivery O2 Flow Rate FiO2 02/05/25 20:04 98.1 74 20 191/64 99 Room Air* 0 21 02/05/25 18:19 98.1 74 20 191/64 99 Room Air 0 LABS: Hematology Labs: Test 02/05/25 18:49 Range/Units White Blood Count 4.6 L 4.8-10.8 K/uL Red Blood Count 4.13 4.00-5.50 MIL/uL Hemoglobin 12.4 12.0-16.0 g/dL Hematocrit 38.1 36-48 % Mean Corpuscular Volume 92.3 79-99 fL Mean Corpuscular Hemoglobin 30.0 27.0-33.0 pg Mean Corpuscular Hemoglobin Concent 32.5 32.0-36.0 g/dL Red Cell Distribution Width 14.2 11.0-15.5 % Platelet Count 160 130-400 K/uL Mean Platelet Volume 9.6 7.5-10.5 fL Immature Granulocyte % (Auto) 0.0 0-1 % Neutrophils (%) (Auto) 52.6 40.0-77.0 % Lymphocytes (%) (Auto) 34.7 21.0-51.0 % Monocytes (%) (Auto) 11.8 3.0-13.0 % Eosinophils (%) (Auto) 0.2 0.0-8.0 % Basophils (%) (Auto) 0.7 0.0-5.0 % Neutrophils # (Auto) 2.4 1.8-7.7 K/uL Lymphocytes # (Auto) 1.6 1.0-4.8 K/uL Monocytes # (Auto) 0.5 0.1-1.0 K/uL Eosinophils # (Auto) 0.01 0.00-0.70 K/uL Basophils # (Auto) 0.03 0.00-0.20 K/uL Absolute Immature Granulocyte (auto 0.00 0-1 K/uL Nucleated Red Blood Cells 0.0 0.0-0.19 % Chemistry Labs: Test 02/05/25 18:49 Range/Units Sodium Level 134 L 136-145 mmol/L Potassium Level 4.3 3.5-5.1 mmol/L Chloride Level 92 L 101-111 mmol/L Carbon Dioxide Level 30 21-32 mmol/L Blood Urea Nitrogen 37 H 7-18 mg/dL Creatinine 7.1 H 0.5-1.0 mg/dL Glomerular Filtration Rate Calc 5 >90 mL/min Random Glucose 144 H 70-105 mg/dL Total Calcium 9.1 8.5-10.1 mg/dL Troponin I High Sensitivity 23 4-50 ng/L B-Type Natriuretic Peptide 685 H 0-100 pg/mL DIAGNOSTICS / RADIOLOGY RESULTS: [ ] PLAN Patient admitted observation status med surge. We will review and reconcile medication list once they become available. Renal diet. We will continue with IV Zofran and monitor for any further emesis. Considering her renal disease and on hemodialysis, we will be cautious on IV fluid for rehydration. We will repeat surveillance labs in the morning. We will monitor the patient's progress and response to management. We will continue to provide general supportive care, GI and DVT prophylaxis. Further orders per attending MD and hospital course. NEURO: Minimize central acting medications as possible. Maintain fall precautions, adequate lighting during the day PULMONARY: Supplemental 02 as needed. Maintain aspiration precautions at all times CARDIOVASCULAR: Follow hemodynamics. Vital signs per facility protocol GI & NUTRITION: Continue with nutritional support. Continue stool softeners and laxatives as needed. KIDNEYS & ELECTROLYTES: Strict monitoring of intake, output and overall fluid balance. Avoid nephrotoxic medications to the extent possible. Medications to be dosed according to renal function. Monitor electrolytes and replace as needed ENDOCRINE: Maintain blood glucose between 100-180 at all times. Hypoglycemia protocol in place INFECTIOUS DISEASE: Trend temperature, WBC and procalcitonin level Follow cultures, deescalate antibiotics as soon as possible. Panculture if new onset fever ONCOLOGY/HEMATOLOGY/COAGULATION: Monitor for s/s of bleeding Monitor hemoglobin, coagulation studies as needed SKIN: Pressure ulcer prevention per facility protocol Specialty mattress ORTHO/REHAB: Continue PT/OT Prophylaxis: Continue GI and DVT prophylaxis Code Status: Full Resuscitation Disposition: TBD Other: Patient was seen by me. Supervising MD OMAYRA Salinas NP Feb 05, 2025 22:16
[2025-02-05] MEDS ORDERED: LACTULOSE 20 GM/30 ML UDCUP PO PRN (22:30)
[2025-02-06] VITALS (20 sets, daily range): BP systolic 91–130; BP diastolic 30–70; PULSE 50–68; RESP 16–18; TEMP 97.8–98.8; O2SAT 97–100
[2025-02-06 07:45] LABS: IMMATURE GRANULOCYTE ABSOLUTE 0.01 K/uL (0-1); NUCLEATED RED BLOOD CELLS 0.0 % (0.0-0.19); PLATELET COUNT (AUTO) 168 K/uL (130-400); RED BLOOD CELL COUNT(AUTO) 4.04 MIL/uL (4.00-5.50); RED CELL DISTRIBUTION WIDTH 14.4 % (11.0-15.5); WHITE BLOOD COUNT (AUTO) 4.9 K/uL (4.8-10.8)
[2025-02-06] MEDS: SITAGLIPTIN PHOSPHATE 25 MG PO SCH (09:00)
[2025-02-06] MEDS: GLIPIZIDE 10 MG PO SCH (09:00)
[2025-02-06] MEDS: SUCROFERRIC OXYHYDROXIDE 500 MG PO SCH (09:00)
[2025-02-06 09:17] LABS: GLOMERULAR FILTR. RATE CALC 5.0 mL/min (>90); GLUCOSE,RANDOM 98.0 mg/dL (70-105); SODIUM SERUM 134.0 mmol/L (136-145); UREA NITROGEN, BLOOD 41.0 mg/dL (7-18)
[2025-02-06 09:27] LABS: CREATININE 8.1 mg/dL (0.5-1.0)
--- NOTE | 2025-02-06 09:46 | HMCIMG ---
CT ABDOMEN/PELVIS W/O CONTRAST REASON: N/V COMPARISON: None. FINDINGS: Lung bases demonstrate discoid atelectasis in both lung bases.. There are no focal liver lesions. Both kidneys appears to be small and atrophic suggesting of.. Spleen and pancreas appear unremarkable. The gallbladder is surgically absent with clips in the gallbladder fossa. Bowel loops appear unremarkable. This includes normal appearance of the appendix. There is an fluid collection seen in the umbilical region. There is no evidence of free fluid or intraperitoneal air. There are no focal fluid collections. Aorta demonstrates atherosclerotic changes with calcified plaque. Retroperitoneum appear normal as do pelvic soft tissue structures. The anterior abdominal wall is intact. Osseous structures appear unremarkable. There is osteoarthritic changes and disc disease of the lumbar spine. The uterus appears very small with calcification suggesting a postmenopausal atrophic uterus. No mass or free fluid within the pelvis. IMPRESSION: 1. No acute process seen in the CT of abdomen and pelvis without intravenous contrast 2. Both kidneys appears to be severely atrophic suggesting of end-stage renal disease. 3. There is fluid collection seen in the umbilical region CT was performed with one or more following dose reduction techniques: automated exposure control, adjustment of the mA and kv according to patient's size, or use of a iterative reconstruction technique.
[2025-02-06] MEDS: Vitamin B Complex/Vit C/Folic Acid PO SCH (10:12)
--- NOTE | 2025-02-06 10:15 | PN ---
[facility] PROGRESS NOTE Date Patient Seen: Feb 06, 2025 Time of Visit: 10:14 Supervising Physician: Dr. Manjeet Hubbard Primary Care Physician: JULY ORELLANA MD (PCP) Outpatient Specialists: [ ] Inpatient Consults: Nephrology PROBLEM LIST: Intractable nausea and vomiting due to COVID-19 infection, POA Hypertensive urgency on admission due to not taking Nifedipine, POA COVID-19 infection Dehydration secondary to above, POA. ESRD on HD MWF POA. Hyperlipidemia. Diabetes mellitus type 2 INTERVAL HISTORY: Patient assessed at bedside. AAOX3. Currently on room air. States she was recently diagnosed with COVID-19 and was started on paxlovid. Ever since she st arted taking Paxlovid, she has had diarrhea and states she hasn't taken her Nifedipine due to being told by pharmacist that she couldn't take Paxlovid and Nifedipine together. Current blood pressure is 190-200. She was just given all her anti-hypertensives. Denies any SOB, chest pain, nausea or vomiting. Plan: CT abdomen/pelvis ordered Resume home medications COVID swab ordered AM labs HD per nephrology REVIEW OF SYSTEMS: 12 point ROS reviewed with patient. Pertinent positives mentioned above. Otherwise negative. PHYSICAL EXAM: GENERAL: Alert, weak, awake oriented x 3 HEENT: EOMI, Sclera non icteric, moist mucosa NECK: Supple, no JVD, trachea midline LUNGS: Clear breath sounds bilaterally. No wheezes HEART: Regular rate and rhythm. Normal S1 and S2, without murmurs ABD: Abdomen soft, nontender. Bowel sounds present EXT: No clubbing cyanosis or edema NEURO: Alert and oriented to person, follows commands Vital Signs (last 8hr) Date Time Temp Pulse Resp B/P (MAP) Pulse Ox O2 Delivery O2 Flow Rate FiO2 02/06/25 07:49 97 Room Air* 0 21 02/06/25 03:39 98.6 80 20 138/58 99 Room Air* 0 21 LABS: Hematology Labs: Test 02/06/25 07:32 Range/Units White Blood Count 4.9 4.8-10.8 K/uL Red Blood Count 4.04 4.00-5.50 MIL/uL Hemoglobin 12.2 12.0-16.0 g/dL Hematocrit 38.6 36-48 % Mean Corpuscular Volume 95.5 79-99 fL Mean Corpuscular Hemoglobin 30.2 27.0-33.0 pg Mean Corpuscular Hemoglobin Concent 31.6 L 32.0-36.0 g/dL Red Cell Distribution Width 14.4 11.0-15.5 % Platelet Count 168 130-400 K/uL Mean Platelet Volume 11.8 H 7.5-10.5 fL Immature Granulocyte % (Auto) 0.2 0-1 % Neutrophils (%) (Auto) 49.7 40.0-77.0 % Lymphocytes (%) (Auto) 37.2 21.0-51.0 % Monocytes (%) (Auto) 10.7 3.0-13.0 % Eosinophils (%) (Auto) 1.4 0.0-8.0 % Basophils (%) (Auto) 0.8 0.0-5.0 % Neutrophils # (Auto) 2.4 1.8-7.7 K/uL Lymphocytes # (Auto) 1.8 1.0-4.8 K/uL Monocytes # (Auto) 0.5 0.1-1.0 K/uL Eosinophils # (Auto) 0.07 0.00-0.70 K/uL Basophils # (Auto) 0.04 0.00-0.20 K/uL Absolute Immature Granulocyte (auto 0.01 0-1 K/uL Nucleated Red Blood Cells 0.0 0.0-0.19 % Chemistry Labs: Test 02/06/25 08:53 02/06/25 06:07 02/05/25 18:49 Range/Units Sodium Level 134 L 136-145 mmol/L Potassium Level 4.5 3.5-5.1 mmol/L Chloride Level 93 L 101-111 mmol/L Carbon Dioxide Level 30 21-32 mmol/L Blood Urea Nitrogen 41 H 7-18 mg/dL Creatinine 8.1 *H 0.5-1.0 mg/dL Glomerular Filtration Rate Calc 5 >90 mL/min Random Glucose 98 70-105 mg/dL Total Calcium 9.2 8.5-10.1 mg/dL Magnesium Level 2.30 1.80-2.40 mg/dL Whole Blood Glucose 79 70-110 MG/DL Troponin I High Sensitivity 23 4-50 ng/L B-Type Natriuretic Peptide 685 H 0-100 pg/mL DIAGNOSTICS / RADIOLOGY RESULTS: [ ] PLAN NEURO: Minimize central acting medications as possible. Maintain fall precautions, adequate lighting during the day PULMONARY: Supplemental 02 as needed. Maintain aspiration precautions at all times CARDIOVASCULAR: Follow hemodynamics. Vital signs per facility protocol GI & NUTRITION: Continue with nutritional support. Continue stool softeners and laxatives as needed. KIDNEYS & ELECTROLYTES: Strict monitoring of intake, output and overall fluid balance. Avoid nephrotoxic medications to the extent possible. Medications to be dosed according to renal function. Monitor electrolytes and replace as needed ENDOCRINE: Maintain blood glucose between 100-180 at all times. Hypoglycemia protocol in place INFECTIOUS DISEASE: Trend temperature, WBC and procalcitonin level Follow cultures, deescalate antibiotics as soon as possible. Panculture if new onset fever ONCOLOGY/HEMATOLOGY/COAGULATION: Monitor for s/s of bleeding Monitor hemoglobin, coagulation studies as needed SKIN: Pressure ulcer prevention per facility protocol Specialty mattress ORTHO/REHAB: Continue PT/OT Prophylaxis: Continue GI and DVT prophylaxis Code Status: Full Resuscitation Disposition: PREMA MENSAH NP Feb 06, 2025 10:15
[2025-02-06] MEDS: LISINOPRIL 40 MG TABLET PO SCH (10:17)
--- NOTE | 2025-02-06 10:30 | NUR ---
GAVE PRN ZOFRAN DUE TO PATIENTS COMPLAINS OF FEELING NAUSEOUS.
[2025-02-06] MEDS: LOPERAMIDE 1 MG/7.5 ML UDCUP PO PRN (10:39)
--- NOTE | 2025-02-06 10:40 | NUR ---
SWABED FOR COVID AN FLU A/B
--- NOTE | 2025-02-06 10:42 | NUR ---
GAVE PRN IMODIUM DUE TO PATIENT STATING SHE HAD A EPISODE OF DIARRHEA. (PATIENT TAKING ANTIVIRAL MEDICATIONS DUE TO DX OF COVID ON 02/02/2025
[2025-02-06 11:02] LABS: INFLUENZA TYPE A Negative For Type A (NEGATIVE); INFLUENZA TYPE B Negative For Type B (NEGATIVE)
[2025-02-06 11:24] LABS: SARS-CoV-2, RNA, NAAT POSITIVE SARS CoV-2 (NEGATIVE)
--- NOTE | 2025-02-06 11:44 | NUR ---
EDUCATED PATIENT ON HOME MDICATIONS, SCHEDULED MEDICATIONS AND PLAN OF CARE. PATIENT VERBALIZED UNDERSTANDING. PLACED BEDSIDE COMMODE NEXT TO BED.
--- NOTE | 2025-02-06 12:00 | NUR ---
BLOOD GLUCOSE 118. NO INSULIN COVERAGE NEEDED AT THIS TIME.
--- NOTE | 2025-02-06 14:18 | NUR ---
DCP: HOME Pt is a dialysis pt at [facility] in . Goes MWF at 4am, Elvis Womack [phone] transports as needed. A home, pt states she uses a cane, walker with seat and shower chair. Pt states she is independent of all her ADLS, can complete without assistance. PCP is Tabatha Flores and uses [facility] for rx needs. Pt denies dc needs and will go home at [place]. Addendum: 02/06/25 at 1428 by KI GUEVARA Amended: Links added. Addendum: 02/06/25 at 1441 by KI CARVALHO SS PT GOES TO [facility] not [facility]
--- NOTE | 2025-02-06 14:41 | NUR ---
CORRECTION: PT GOES TO [facility]:
[2025-02-06] MEDS: 0.9%NACL 1000ML 1,000 ML IV SCH (15:00)
--- NOTE | 2025-02-06 15:07 | NUR ---
OBTAIND CONSENT FOR HEMODYALISIS.
--- NOTE | 2025-02-06 16:11 | NUR ---
BLOOD GLUCOSE 117. NO INSULIN COVERAGE NEEDED AT THIS TIME.
--- NOTE | 2025-02-06 16:45 | NUR ---
CALLED MRS. ANDREWS HOOVER FOR REPORT. DISCUSSED PLAN OF CARE, MEDICATIONS, IMAGING AND LAB RESULTS.
--- NOTE | 2025-02-06 17:03 | NUR ---
REPORT RECEIVED FROM IZA MURDOCK. PATIENT BEING ADMITTED FROM THE ER. NO SIGNS OF DISTRESS NOTED ON ARRIVAL.
[2025-02-07] VITALS (9 sets, daily range): BP systolic 86–137; BP diastolic 29–45; PULSE 59–65; RESP 16–18; TEMP 97.7–98.3; O2SAT 98
--- NOTE | 2025-02-07 00:25 | NUR ---
HYPOTENSION POST HEMODIALYSIS PT S/P HD WITH 1500 CC PULLED OUT. BP WAS AT 91/30 MMHG 1 HR POST HD, PT STATED THAT SHE FEELS OK. BP USUALLY DROPS AFTER HD AND THAT SHE FEELS JUST FINE. PT GIVEN A SNACK WITH A SANDWICH AND APPLE JUICE, NO MORE EPISODES OF NAUSEA AND VOMITING NOW. BP RECHECKED AFTER AND IT WAS DOWN TO 86/29 MMHG. BENCHMARK CALLED, OMAYRA WHELAN CUSTOM GARMENT DESIGNER MADE AWARE AND ORDERED 250 CC OF ALBUMIN 5% WHICH WAS ADMINISTERED RIGHT AWAY.
[2025-02-07] MEDS: ALBUMIN (HUMAN) 5% 250 ML IV STA (00:40)
--- NOTE | 2025-02-07 02:45 | NUR ---
PERSISTENT HYPOTENSION BLOOD PRESSURE 1 HR POST ALBUMIN AT 87/31 MMHG, PT ASYMPTOMATIC. NO COMPLAINTS OF LIGHTHEADEDNESS, DIZZY SPELLS. AGAIN MONITORED BP, 2 HRS POST ALBUMIN ADM, NOW AT 93/37 MMHG WITH MAP AT 55. OMAYRA WHELAN CALLED AGAIN, UPDATED WITH LATEST VS AND ORDERED TO GIVE MIDODRINE 10 MG NOW AND START PT ON A 5MG DOSE DAILY TO START IN THE AM. PT MADE AWARE OF THE PLAN OF CARE.
--- NOTE | 2025-02-07 14:12 | DS ---
[facility] DISCHARGE SUMMARY Date Patient Seen: Feb 07, 2025 Time of Visit: 14:12 Supervising Physician: Dr. Manjeet Hubbard Primary Care Physician: JULY ORELLANA MD (PCP) Outpatient Specialists: [ ] Inpatient Consults: Nephrology PROBLEM LIST: Intractable nausea and vomiting due to COVID-19 infection, POA, likely due to Paxlovid, resolved Hypertensive urgency on admission due to not taking Nifedipine, POA COVID-19 infection Dehydration secondary to above, POA. ESRD on HD MWF POA. Hyperlipidemia. Diabetes mellitus type 2 HPI (per admitting provider) This is a 79-year-old female patient who has past medical history that is significant for Diabetes-Type II, High Cholesterol, Hypertension, Renal Failure on HD MWF with last dialysis on 02/04/2025. Per patient report, she began with nausea and vomiting which later progressed to generalized body weakness. The patient reports she was not able to keep anything down, even her meals. She contacted her PCP who started her on Imodium but found no relief as she was not able to keep the medication down. For this reason, the patient came into the emergency department for further evaluation and management of her condition. Upon initial evaluation in the emergency department, vital signs showed elevated blood pressure reading. There was no febrile events, tachycardia or tachypnea. Laboratory data showed no WBC count elevation. Chemistry panel showed slightly low sodium and chloride levels. Renal parameters were elevated with a BUN of 37, creatinine of 7.1 and a GFR 5, consistent with her renal disease. Patient had a BNP level of 685. Imaging of the chest was obtained and showed no acute airspace disease. The patient was subsequently admitted for further inpatient evaluation and management of her condition. At the time of my visit, the patient remained in the emergency department awaiting bed assignment. The staff nurse reports no acute events since admission. No other complaint. HOSPITAL COURSE: Patient was admitted due persistent nausea and vomiting due to COVID and taking Paxlovid. Patient also had hypertensive emergency due to not taking nifedipine as instructed by a doctor to hold while she was on Paxlovid. All home medications restarted and blood pressure improved. Today, patient is AAOX3. Currently on room air. States she feels better and ready to go home. Denies any chest pain, abdominal pain, nausea or vomiting. Stable for discharge home. Discharge instructions given to patient to follow up with PCP and check her blood pressure at home and keep log and to hold blood pressure medications if blood pressure less than 100, verbalized understanding. Continued Medications: Clonidine HCl (Catapress 0.2 mg Tab) 0.2 Mg Tablet 0.2 MG PO BID for 30 Days, #60 TAB Glipizide (Glipizide) 10 Mg Tablet 10 MG PO AM, TAB Hydralazine HCl (Hydralazine HCl) 25 Mg Tablet 25 MG PO TID, TAB Insulin Glargine,Hum.rec.anlog (Lantus) 100 Units/Ml Inj 28 UNITS SQ HS, ML HOLD FOR BLOOD SUGAR LESS THAN 200 Levothyroxine Sodium (Levothyroxine Sodium) 112 Mcg Tablet 112 MCG PO DAILY Lisinopril (Lisinopril) 40 Mg Tablet 40 MG PO DAILY, TAB Metoprolol Tartrate (Metoprolol Tartrate) 50 Mg Tablet 50 MG PO BID, TAB Nifedipine (Nifedipine ER) 60 Mg Tab.er.24 90 MG PO ACBKFST Simvastatin (Simvastatin) 10 Mg Tablet 10 MG PO DAILY, TAB Sitagliptin Phosphate (Januvia) 25 Mg Tablet 25 MG PO DAILY, TAB Sitagliptin Phosphate (Januvia) 25 Mg Tablet 25 MG PO DAILY, TAB Sucroferric Oxyhydroxide (Velphoro) 500 Mg Tab.chew 500 MG PO BID, TAB.CHEW Vit B Cmplx 3/FA/Vit C/Biotin ([place] Rx Tablet) 1 Each Tablet 1 EACH PO AM, TAB PHYSICAL EXAM: GENERAL: Alert, weak, awake oriented x 3 HEENT: EOMI, Sclera non icteric, moist mucosa NECK: Supple, no JVD, trachea midline LUNGS: Clear breath sounds bilaterally. No wheezes HEART: Regular rate and rhythm. Normal S1 and S2, without murmurs ABD: Abdomen soft, nontender. Bowel sounds present EXT: No clubbing cyanosis or edema NEURO: Alert and oriented to person, follows commands FOLLOW-UP: Follow-up with PCP in 2-3 days RECOMMENDATIONS: See Discharge Instructions This case was seen and discussed with my supervising physician. More than 30 minutes spent on discharge process, including evaluation of the patient, discussion with nursing staff, medication reconciliation and follow-up appointments PREMA BLANC NP Feb 07, 2025 14:12
--- NOTE | 2025-02-07 15:38 | NUR ---
BLOOD PRESSURE BLOOD PRESSURE READINGS REPORTED TO PREMA BLANC NP. OK TO DISCHARGE. ORDERS CARRIED OUT.
--- NOTE | 2025-02-07 15:41 | NUR ---
DISCHARGE DISCHARGE ORDERS OBTAINED FOR PATIENT TO BE DISCHARGED HOME. DISCHARGE INSTRUCTIONS AND DOCUMENTATION GIVEN TO PATIENT AT BEDSIDE. VOICED UNDERSTANDING. IV DISCONTINUED, CATHETER INTACT, NO S/S OF INFECTION NOTED TO SITE. PATIENT TOLERATED WELL. BANDS REMOVED PRIOR TO DISCHARGE. PENDING TRANSPORTATION FROM .
--- NOTE | 2025-02-07 16:20 | NUR ---
DISCHARGE PATIENT LEFT VIA WHEELCHAIR, ACCOMPANIED BY . NO S/S OF DISTRESS NOTED.
[2025-02-09 13:38] LABS: HEPATITIS B CORE AB TOTAL Non-Reactive (Nonreactive)
[2025-02-09 13:39] LABS: HEPATITIS B SURFACE ANTIBODY Positive (Reactive)
== END 2025-02-07 16:16 | disposition home or self-care (01) ==
LOC: EDH 18:16 → EDHIP 22:09 → 3CH 02-06 17:02
PROVIDERS: ADMIT Internal Medicine Critical Care Medicine; ATTEND Internal Medicine Critical Care Medicine
DX: U07.1 COVID-19 (principal); I12.0 Hypertensive chronic kidney disease with stage 5 chronic kidney disease or end stage renal disease; E11.22 Type 2 diabetes mellitus with diabetic chronic kidney disease; D63.1 Anemia in chronic kidney disease; N18.6 End stage renal disease; I16.1 Hypertensive emergency; E87.70 Fluid overload, unspecified; E11.65 Type 2 diabetes mellitus with hyperglycemia; E78.00 Pure hypercholesterolemia, unspecified; E86.0 Dehydration; E87.1 Hypo-osmolality and hyponatremia; Z79.4 Long term (current) use of insulin; Z79.899 Other long term (current) drug therapy; Z99.2 Dependence on renal dialysis; Z79.84 Long term (current) use of oral hypoglycemic drugs; Z98.890 Other specified postprocedural states
CPT/HCPCS: 96374; 96372 ×3; 99285; 84484; 80048 ×2; 83880; 85025 ×2; 36415 ×2; 71045; 93005; 96376 ×2; 96375; 83735; 86803; 87804 ×2; 82948 ×7; 86706; 87340; 86704; 87635; 74176; 90935; G0378 ×42; J2405 ×2; J1644 ×4; J2470 ×3; J1815; P9045; G0257